=== PATIENT | male | born 1955 | race Caucasian/White ===

== ENCOUNTER 2018-09-27 10:21 | Inpatient (IN) ==
[2018-09-27] MEDS ORDERED: DOXY-100 100 MG in SODIUM CHLORIDE 100 ML IV STA (11:09)
[2018-09-27] MEDS ORDERED: UNASYN 3 GM in SODIUM CHLORIDE 100 ML IV STA (11:10)
[2018-09-27] MEDS: SODIUM CHLORIDE 1,000 ML IV STA ×2 (11:12→11:49)
[2018-09-27] MEDS ORDERED: UNASYN ONE (11:40)
--- NOTE | 2018-09-27 11:53 | CT ---
EXAM: CT of the abdomen pelvis without contrast History: Abdominal pain and fever. Comparison: Chest CT 09/27/2018 Technique: Multiplanar CT images through the abdomen pelvis were obtained without the administration of IV contrast Findings: Lung bases are clear. No acute osseous abnormalities. The liver is fatty. Gallbladder is contracted. Spleen is unremarkable. No peripancreatic inflammat ion. Adrenal glands are within normal limits. Nonspecific bilateral perinephric stranding. No manas l stones and no hydronephrosis. 4.2 cm right renal cyst. 1.7 cm cyst within the left kidney No uret eral calculi. No bowel obstruction. Small fat-containing umbilical hernia. There is mild subcutane ous edema and skin thickening of the lower anterior abdominal wall. No abscess. No bladder wall thi ckening. Prostate is not enlarged. No perirectal inflammation. No bowel obstruction. The appendix is normal. No free air and no ascites. Impression: 1. No acute intra-abdominal or pelvic process. 2. Hepatic steatosis. 3. Small fat-containing umbilical hernia. 4. Mild cellulitis of the lower anterior abdominal wall. No abscess. 5. Simple appearing bilateral renal cysts. 6. Nonspecific bilateral perinephric stranding.
--- NOTE | 2018-09-27 11:53 | CT ---
EXAM: CT of the chest without contrast History: Cough and fever. Comparison: CT abdomen pelvis 09/27/2014, chest radiograph 03/01/2015 Technique: Multiplanar CT images through the thorax were obtained without the administration of IV c ontrast Findings: Heart size is normal. Coronary calcifications. No thoracic aortic aneurysm. No axillary lymphadenopathy. There are several small but not pathologically enlarged mediastinal lymph nodes. Evaluation for hilar lymph nodes is limited due to the lack of contrast administration. No consolida tion. No pleural fluid and no pneumothorax. No suspicious lung masses or lung nodules. For details in the upper abdomen, please see dedicated CT abdomen pelvis done on the same day. No ac lilli osseous abnormalities. Impression: 1. No acute intrathoracic process. 2. Coronary artery disease
[2018-09-27] MEDS ORDERED: TYLENOL PO STA (11:54)
[2018-09-27] MEDS ORDERED: SODIUM CHLORIDE 1,000 ML IV STA (13:14)
--- NOTE | 2018-09-27 13:47 | ED.PDOC ---
General ED Provider: Dr. ALINA GRECO Chief Complaint: Fever Stated Complaint: FEVER RASH ABDOMEN TICK BITE Time Seen by Physician: 10:30 Mode of Arrival: Walk-In Information Source: Patient Exam Limitations: No limitations Primary Care Provider: VENANCIO WATTS Nursing and Triage Documentation Reviewed and Agree: Yes Does patient meet sepsis criteria?: No System Inflammatory Response Syndrome: Not Applicable Sepsis Protocol: For patient's 13 years and over: Temp is 96.8 and below OR 101 and greater Pulse >90 BPM Resp >20/minute Acutely Altered Mental Status Are patient's symptoms suggestive of a new infection, such as: -Pneumonia -Skin, Soft Tissue -Endocarditis -UTI -Bone, Joint Infection -Implantable Device -Acute Abdominal Infection -Wound Infection -Meningitis -Blood Stream Catheter Infection -Unknown Skin Complaint Exam - Skin Rash/Itching Complaint/Exam Symptoms Are: Still present Initial Severity: Mild Current Severity: Mild Potential Exposures: Reports: Unknown (POSSIBLE TICK) Aggravating: Reports: None Alleviating: Reports: None Associated Signs and Symptoms: Denies: Difficulty breathing, Fever, Chills Skin Findings: Present: Normal findings, Target lesions Review of Systems - Review Of Systems Constitutional: Reports: Fever, Malaise Eyes: Reports: No symptoms Ears, Nose, Mouth, Throat: Reports: No symptoms Respiratory: Reports: Cough Cardiac: Reports: No symptoms GI: Reports: Abdominal pain : Reports: No symptoms Musculoskeletal: Reports: No symptoms Skin: Reports: No symptoms Neurological: Reports: No symptoms Endocrine: Reports: No symptoms Hematologic/Lymphatic: Reports: No symptoms All Other Systems: Reviewed and Negative Past Medical History - Past Medical History Previously Healthy: Yes Endocrine: Reports: DM 2 Cardiovascular: Reports: Hypertension Respiratory: Reports: None Hematological: Reports: None Gastrointestinal: Reports: None Genitourinary: Reports: None Neuro/Psych: Reports: None Musculoskeletal: Reports: None Cancer: Reports: None - Surgical History General Surgical History: Reports: None - Family History Family History: Reports: None - Social History Smoking Status: Former smoker Hx Substance Use: No Alcohol Screening: None - Immunizations Tetanus Shot up to Date: No Physical Exam - Physical Exam Appearance: Well-appearing, No pain distress, Well-nourished Eyes: BINA, EOMI, Conjunctiva clear ENT: Ears normal, Nose normal, Oropharynx normal Respiratory: Airway patent, Breath sounds clear, Breath sounds equal, Respirations nonlabored Cardiovascular: RRR, Pulses normal, No rub, No murmur GI/: Soft, Nontender, No masses, Bowel sounds normal, No Organomegaly Musculoskeletal: Normal strength, ROM intact, No edema, No calf tenderness Skin: Warm, Dry, Normal color Neurological: Sensation intact, Motor intact, Reflexes intact, Cranial nerves intact, Alert, Oriented Psychiatric: Affect appropriate, Mood appropriate Interpretation - Radiology Interpretation Radiology Interpretation By: Radiologist Radiology Results: No acute changes - Road Grader Rhythm: Other (AFIB) - EKG Interpretation Rhythm: Other (AFIB) Re-Evaluation - Re-Evaluation Time of Re-Evaluation: 12:00 Status: Improved Appearance: NAD Lungs: Clear Skin: Warm and Dry Neuro: Alert and Oriented X3 CV: RRR - Re-Evaluation Time of Re-Evaluation: 13:47 Status: Improved Vital Signs Stable: Yes Appearance: NAD Skin: Warm and Dry Neuro: Alert and Oriented X3 CV: RRR Physician Notification - Case Discussed Physician Notified: CHRISTINE Time of Notification: 13:48 Admit To: Inpatient Critical Care Note - Critical Care Note Total Time (mins): 0 Course - Course Hematology/Chemistry: 09/27/18 10:55 09/27/18 10:55 Orders, Labs, Meds: Lab Review 09/27/18 09/27/18 09/27/18 10:55 10:55 11:20 WBC 8.11 RBC 4.10 L Hgb 11.9 L Hct 35.3 L MCV 86.1 MCH 29.0 MCHC 33.7 RDW Coeff of Samantha 12.5 Plt Count 201 Immature Gran % (Auto) 0.7 Neut % (Auto) 70.4 Lymph % (Auto) 18.4 [place] % (Auto) 10.0 Eos % (Auto) 0.0 Baso % (Auto) 0.5 Immature Gran # (Auto) 0.1 Neut # (Auto) 5.7 Lymph # (Auto) 1.5 [place] # (Auto) 0.8 Eos # (Auto) 0.0 Baso # (Auto) 0.0 Sodium 137.5 Potassium 3.80 Chloride 97.9 L Carbon Dioxide 26.1 Anion Gap 17.30 BUN 17.9 Creatinine 1.25 H Estimated GFR (MDRD) 59.00 BUN/Creatinine Ratio 14.32 Glucose 119.4 H Lactic Acid Calcium 8.62 Total Bilirubin 0.78 AST 49.6 ALT 55.5 H Alkaline Phosphatase 48.2 L Total Protein 7.56 Albumin 4.23 Globulin 3.33 Albumin/Globulin Ratio 1.27 Procalcitonin 0.36 09/27/18 11:20 WBC RBC Hgb Hct MCV MCH MCHC RDW Coeff of Samantha Plt Count Immature Gran % (Auto) Neut % (Auto) Lymph % (Auto) [place] % (Auto) Eos % (Auto) Baso % (Auto) Immature Gran # (Auto) Neut # (Auto) Lymph # (Auto) [place] # (Auto) Eos # (Auto) Baso # (Auto) Sodium Potassium Chloride Carbon Dioxide Anion Gap BUN Creatinine Estimated GFR (MDRD) BUN/Creatinine Ratio Glucose Lactic Acid 1.35 Calcium Total Bilirubin AST ALT Alkaline Phosphatase Total Protein Albumin Globulin Albumin/Globulin Ratio Procalcitonin Orders Category Date Time Status EKG-(ED ONLY) Stat CARDIO 09/27/18 11:06 Completed ED IV/MEDIPORT/POWERPORT .ONCE EMERGENCY 09/27/18 11:06 Active BLOOD CULTURE Stat LAB 09/27/18 12:00 Received CBC W/ AUTO DIFF Stat LAB 09/27/18 10:55 Completed COMPREHENSIVE METABOLIC PANEL Stat LAB 09/27/18 10:55 Completed EHRLICHIA DNA, PCR Stat LAB 09/27/18 11:20 Received LACTIC ACID Stat LAB 09/27/18 11:20 Completed LYME, WESTERN BLOT, SERUM Stat LAB 09/27/18 11:20 Received PROCALCITONIN Stat LAB 09/27/18 11:20 Completed VIANEY MTN SPOTTED FEVER,IgG Stat LAB 09/27/18 11:20 Received VIANEY MTN SPOTTED FEVER,IgM Stat LAB 09/27/18 11:20 Received 0.9 % Sodium Chloride [Saline Flush] MEDS 09/27/18 11:06 Active 1 syr IVF PRN PRN Acetaminophen [Tylenol] MEDS 09/27/18 11:54 Discontinued 650 mg PO ONCE STA Ampicillin Sodium/Sulbactam Na [Unasyn] MEDS 09/27/18 11:40 Discontinued 3 gm .ROUTE .STK-MED ONE Ampicillin Sodium/Sulbactam Na [Unasyn] 3 gm MEDS 09/27/18 11:10 Discontinued 0.9 % Sodium Chloride [Sodium Chloride] 100 ml IV ONCE Doxycycline Hyclate Inj [Doxy-100] 100 mg MEDS 09/27/18 11:09 Discontinued 0.9 % Sodium Chloride [Sodium Chloride] 100 ml IV ONCE SODIUM CHLORIDE 0.9% @ 1,000 MLS/HR(1,000ml) MEDS 09/27/18 13:14 Ordered Sodium Chloride 0.9% [Sodium Chloride] 1,000 ml IV BOLUS Sodium Chloride 0.9% [Sodium Chloride] 1,000 ml MEDS 09/27/18 11:[address] ABDOMEN/PELVIS WO CONTRAST Stat RADS 09/27/18 11:[address] CHEST W/O CONTRAST Stat RADS 09/27/18 11:08 Completed Medications Generic Name Dose Route Start Last Admin Trade Name Freq PRN Reason Stop Dose Admin Sodium Chloride 1,000 mls @ 1,000 mls/hr 09/27/18 13:14 Sodium Chloride IV 09/27/18 14:13 BOLUS STA Sodium Chloride 1 syr 09/27/18 11:06 09/27/18 13:15 Saline Flush IVF 1 syr PRN PRN Administration To flush IV Discontinued Medications Generic Name Dose Route Start Last Admin Trade Name Freq PRN Reason Stop Dose Admin Acetaminophen 650 mg 09/27/18 11:54 09/27/18 11:59 Tylenol PO 09/27/18 11:55 650 mg ONCE STA Administration Sodium Chloride 1,000 mls @ 1,000 mls/hr 09/27/18 11:07 09/27/18 11:49 Sodium Chloride IV 09/27/18 12:06 1,000 mls/hr BOLUS STA Administration Doxycycline Hyclate 100 mg/ 100 mls @ 50 mls/hr 09/27/18 11:09 09/27/18 13:13 Sodium Chloride IV 09/27/18 13:08 50 mls/hr ONCE STA Administration Ampicillin Sodium/Sulbactam 100 mls @ 100 mls/hr 09/27/18 11:10 09/27/18 11: 49 Sodium 3 gm/ Sodium Chloride IV 09/27/18 12:09 100 mls/hr ONCE STA Administration Vital Signs: Temp Pulse Resp BP Pulse Ox 09/27/18 12:05 102.3 F H 09/27/18 10:26 102.0 F H 102 H 16 151/76 H 91 L Departure - Departure Time of Disposition: 13:47 Disposition: ADMITTED INPATIENT Discharge Problem: Fever Tick bite Qualifiers: Encounter type: initial encounter Qualified Code(s): W57.XXXA - Bitten or stung by nonvenomous insect and other nonvenomous arthropods, initial encounter Condition: Good Pt referred to PMD for follow-up: Yes IPMP verified?: No Additional Instructions: Please call your Family Physician as soon as possible to schedule a follow-up appointment. Allergies/Adverse Reactions: Allergies No Known Allergies Allergy (Unverified 09/27/18 10:45) Home Medications: Ambulatory Orders Amitriptyline HCl [Elavil] 12.5 mg PO BEDTIME 09/27/18 Atenolol 100 mg PO DAILY 09/27/18 Clobetasol Propionate/Emoll [Clobetasol Emollient 0.05% Crm] 1 mg TP PRN PRN Glipizide 10 mg PO BID 09/27/18 Hydrochlorothiazide 25 mg PO DAILY 09/27/18 Insulin Aspart [Novolog Flexpen] 20 units SQ TIDAC 09/27/18 Liraglutide [Victoza 3-Ben] 0.6 mg SQ DAILY 09/27/18 Lisinopril [Zestril] 40 mg PO DAILY 09/27/18 Meclizine HCl 25 mg PO PRN PRN 09/27/18 Metformin HCl 1,000 mg PO DAILY 09/27/18 Mupirocin [Bactroban] 1 applic TP BID 09/27/18 Omeprazole [Prilosec] 20 mg PO BID 09/27/18 Pregabalin [Lyrica] 150 mg PO DAILY 09/27/18 Ranitidine HCl 150 mg PO BEDTIME 09/27/18 Simvastatin 40 mg PO BEDTIME 09/27/18 Sulfamethoxazole/Trimethoprim [Bactrim Ds 800/160 mg] 1 tab PO BID 09/27/18
[2018-09-27] MEDS ORDERED: ANTIVERT PO PRN (13:52)
--- NOTE | 2018-09-27 14:07 | PCM ---
- Chief Complaint Chief Complaint: Tick Bite. Fever - History of Present Illness History of Present Illness: 62 yo CM patient of Dr. Collins presented to ED 10:30 this am and met with DR. Finnegan. Known history of HTN, IDDM DM2, hyperlipidemia, Obesity bmi 35. The patient presented today with fever, abdominal rash and known tick bite. Vitals Temp 102 degrees, pulse 102, rr 16, bp 151/76, pulse ox 91 %. Repeated at 12: 05 and 102.3 degrees. Concern for tick bite/fever, covered with doxycycline in the Er as well as unasyn. 1 L bolus, tylenol given as well. CT chest ordered, CT abd pelvis ordered. RMSF ordered, Procalc ordered, lyme ordered, Lactic acid ordered, ehrlichia ordered, CBC/CMP, blood culture and EKG ordered. Lactic acid negative at 1.35. Procalcitonin negative 0.36. CMP glucose mildly elevated at 119.4, mild suspected KI with creatinine 1.25 and GFR 59. Remainder WNL. CBC showed wbc 8.11, hgb 11.9, mild anemia. Plt normal at 201. I was called at 13:[address] and had discussion [address] Dr[address] Finnegan 1:1 and agreed to observation admit. Evaluated by ED provider at 1200 and 1347. He was listed as afib by rhythm ekg and lunchroom monitor. Exam in ER well appearing no distress, no other pertinent + or -. Tetanus shot is not up to date. He denied any SOA, PND, orthopnea, chest pain, GARCIA. Patient did meet SIRS criteria w/ temp >100.4 and HR >90. Chest CT showed no acute intrathoracic process, CAD. Abd pelvis CT w/o contrast: NO acute process. Fatty liver, small fat containing umbilical hernia. Mild cellulitis of lower abdominal wall, no abscess. Simple appearing bilateral renal cysts. Non specific bilateral perinephric stranding. REviewed nursing note and patient went to on sunday and was placed on topical cream and given sulfa abx. Went to pcp office yesterday, saw PA . Wanted to watch and add another abx to this. noted that they waited but never called anything in. Went to [facility] ER gave fluids and IV vanco. He felt worse, complained of systemic fever. 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 I like the option for clinda and doxy. Patient in room with step daughter today. Seen in room 110 at 1600. he has had sore on his abdomen for about 1 week. he notes it is increasing in size and nothing has worked so far to decrease this. He has been on numerous abx this week, nothing is working. he notes he has been to [facility] ER, [facility], PCP office. He has had chills and fever since sunday. He has been using tylenol. temp was 102 in the Er and now down to 100.9. he has no pain anywhere, just tired, fatigued. He reports no GARCIA, feels dizzy and disoriented and fatigued. Poor sleep. Did not get [facility] from [facility] until after 1 am. Patient noted that physician that saw him at [facility] did not want abx. they gave vanco. he is tired/frustrated and wants to get it improving. Diagnosed him w/ cellulitis and d/c from ER with temp of 101. WE obtained 09/24/18 records from [facility] Genevieve colbert. Blistering abscess moderate sudden onset x 5 days. Worsening with time. Insect bite/sting suggested. Fever, GARCIA and nausea, chills and dizziness w/o Diarrhea or emesis. ROS showed chills/fever, nausea, dizziness and GARCIA. BP was 157/86 in . Bactroban ordered (Would still use this). Bactrim ordered by . 09/26/18 presented to ED and met with Sincere Linder DO for his ad cellultis. They noted ?spider bite. Sunday09/21/18 noted worsening area of skin irritation. 09/24 went to . Was given bactrim and told to return to ER if worsening as MRSA is possible. Redness and sx worsening, saw his PCP mid level am of 09/26/18. He was given Rx for clinda but never got it. No new sx in their Er. Chills/ fatigue. No chest pain, racing heart, dizziness. No SOA, no ND, no orthopnea. Fatigue ++. No genitourinary complaints. WBC 7.51, lactate 1.2. IV vanco ordered. CT abd/pelvis not done there as not clinically indicated, localized drainage no I+D. No IV abs needed, does have rx for clinda. Admission not warranted at their ER. He presented here with essentially same history but now fever for ~1 week. Rash now c/w RMSF. He has not picked up the clinda. I will put him on that and doxy. PCN (ER) and doxy not great choice due to interactions. - Review of Systems Constitutional: fever, chills, weakness, sweats, fatigue, loss of appetite. No : other Eyes: No: blurred vision, double-vision, discharge, itching, pain, redness, photophobia, other Ears: No: pain, bleeding, drainage, ringing, hearing loss, other Nose: No: bleeding, congestion, discharge, other Throat: No: pain, swelling, voice change, other Mouth: No: bleeding, pain, swelling, other Respiratory: No: cough, shortness of air, wheeze, hemoptysis, pain with breathing, other Cardiovascular: No: chest pain, left arm pain, diaphoresis, PND, orthopnea, edema, palpitations, syncope, other Gastrointestinal: No: abdominal pain, other, nausea, vomiting, diarrhea, melena , hematemesis, hematochezia, dysphagia, constipation Genitourinary: No: dysuria, hematuria, frequency, incontinence, flank pain, penile discharge, testicular pain, testicular swelling, other Neurological: headache (mild), dizziness (mild). No: other, seizure, numbness, weakness, speech difficulty, problems with walking, tremor, fainting Musculoskeletal: No: pain, swelling in joints, other Skin: No: rash, pruritus, lacerations, wounds, bruising, other Immunology: itching, other. No: hives, frequent infections, difficulty healing Hematology: No: easy bruising, easy bleeding, swollen glands, other Endocrine: No: weight changes, cold intolerance, heat intolerance, excessive thirst, excessive hunger, polyuria, other Psychiatric: anxiety, sleeplessness. No: depression, hopelessness, suicidal, hallucinations, other Habits: alcohol use (intermittent beer). No: tobacco use, substance use, other - Past Medical History Past Medical History: IDDM (NOVOLOG AND VICTOZA, METFORMIN, GLIPIZIDE), Hyperlipidemia, HTN, BMI 35, neuropathy peripherally. GERD. - Past Surgical History Past Surgical History: none. - Allergies Allergies/Adverse Reactions: Allergies Allergy/AdvReac Type Severity Reaction Status Date / Time No Known Allergies Allergy Verified 09/27/18 15:54 - Medications Medications: Medications Generic Name Dose Route Start Last Admin Trade Name Freq PRN Reason Stop Dose Admin Amitriptyline HCl 12.5 mg 09/27/18 21:00 Elavil PO BEDTIME RAMOS Hydrochlorothiazide 25 mg 09/28/18 09:00 Hydrochlorothiazide PO DAILY RAMOS Sodium Chloride 1,000 mls @ 1,000 mls/hr 09/27/18 13:14 Sodium Chloride IV 09/27/18 14:13 BOLUS STA Doxycycline Hyclate 100 mg/ 100 mls @ 50 mls/hr 09/27/18 21:00 Sodium Chloride IV 09/30/18 20:59 Q12HR RAMOS Sodium Chloride 1,000 mls @ 75 mls/hr 09/27/18 14:00 Sodium Chloride IV .[id number] RAMOS Ampicillin Sodium/Sulbactam 100 mls @ 100 mls/hr 09/27/18 21:00 Sodium 3 gm/ Sodium Chloride IV 09/30/18 20:59 Q12HR [facility] Lisinopril 40 mg 09/28/18 09:00 Zestril PO DAILY [facility] Meclizine HCl 25 mg 09/27/18 13:52 Antivert PO PRN PRN Dizziness Non-Formulary Medication 100 mg 09/28/18 09:00 Atenolol [Atenolol] PO DAILY [facility] Non-Formulary Medication 10 mg 09/27/18 21:00 Glipizide [Glipizide] PO BID RAMOS Non-Formulary Medication 20 units 09/27/18 17:00 Insulin Aspart [Novolog Flexpen] SQ TIDAC [facility] Non-Formulary Medication 0.6 mg 09/28/18 09:00 Liraglutide [Victoza 3-Ben] SQ DAILY [facility] Non-Formulary Medication 1,000 mg 09/28/18 09:00 Metformin Hcl [Metformin Hcl] PO DAILY RAMOS Non-Formulary Medication 150 mg 09/28/18 09:00 Pregabalin [Lyrica] PO DAILY RAMOS Non-Formulary Medication 150 mg 09/27/18 21:00 Ranitidine Hcl [Ranitidine Hcl] PO BEDTIME RAMOS Omeprazole 20 mg 09/27/18 21:00 Prilosec PO BID RAMOS Simvastatin 40 mg 09/27/18 21:00 Zocor PO BEDTIME RAMOS Sodium Chloride 1 syr 09/27/18 11:06 09/27/18 13:15 Saline Flush IVF 1 syr PRN PRN Administration To flush IV - Family History Past Family History: Mother-Dec: Alzheimer, HTN. Father-Dec: emphysema. Brother-Dec: ETOH abuse. Sister-Sarah: healthy. Son-Sarah: healthy. Daughter-Sarah : HTN - Social History Past Social History: at home. No drugs, no tobacco, intermittent rare ETOH. 3 dogs at home and a cat. Works for [employer]. - Body Composition Height: 6 ft Weight: 258 lb 3.2 oz Body Mass Index (BMI): 35.0 - Physical Examination HEENT: Constitutional: Appearance-No acute distress, Consistent with stated age. Orientation- Oriented x 3, alert Gait-Normal pace, normal arm movement. Build and Nutrition-[obese male BMI 35. General- Patient is pleasant and cooperative with the interview and exam. Integumentary: General-rash is present UE, LE, Abdomen, torso, ulcers or lesions. Palpation- Normal skin moisture/turgor. Skin is warm to touch, appropriate. Capillary refill is normal bilateral Upper and lower extremity. 5mm x 5mm central skin breakdown/scab. 7 cm x 3 cm erythema with skin pen marking and second rim 13cm x 7 cm. Blanching erythema. No discomfort. Not fluctuant. This has ?EM appearance to it. He has scattered papular rash along abdomen and wrist forearm on right/left, chest and bilateral lE. i discussed did not look like Solomon, but did look like RMSF. Head/Neck: Head- normocephalic and atraumatic. Neck- without visible/palpable lumps or pulsations. Palpation- No bony tenderness about head/neck along frontal, occipital, temporal, parietal, mastoid, jawline, zygoma, orbit or any other location. NO temporal artery tenderness. No TMJ tenderness. Neck Supple. Thyroid-No thyromegaly, no nodules Eye: Bilaterally PERRLA, EOMI. No discharge. Upper and lower eyelids are normal. Sclera/conjunctiva normal without discharge. Cornea is normal and clear. Lens is normal. Eyeball appears normal. No ciliary flushing, no conjunctival injection. ENMT: Pinna- normal without tenderness or erythema. External auditory canal Left- normal without erythema or discharge, no excessive cerumen. External auditory canal Right-normal without erythema or discharge, no excessive cerumen. TM left- Mata/pearly, normal light reflex and anatomy TM Right- Mata/ pearly, normal light reflex and anatomy Hearing Assessment-normal to conversational speech. Nose and sinus- No sinus tenderness along frontal/ maxillary region. External appearance normal and midline. Nares- bilateral quiet airflow, no discharge. Nasal mucosa- No bleeding noted and no ulcerations observed. Bernard, moist. Turbinates non boggy. Lips- normal color, moist without cracks/lesions Oral Cavity/Palate- hard/soft palate intact without lesions, oral mucosa pink and moist. Dentition assessed [] and discussed appropriate oral care. Tongue normal midline. Oropharynx- no pharyngeal erythema, Uvula midline. No post nasal drip. No exudate. Salivary glands- Non tender to palpation CHEST/LUNG: Inspection- symmetric chest wall no pectus deformity. Normal effort , no distress, no use of accessory muscles. Palpation- nontender sternum, ribline. No abnormal pulsations. Auscultation- Breath sounds normal throughout all lung rosado. Normal tracheal sounds, Normal bronchial sounds overlying sternum, Bronchovessicular sounds normal between scapulae posteriorly, Normal vessicular breath sounds heard throughout periphery. Lungs are clear today. Adventitious sounds- No wheezes, rales, rhonchi. CARDIOVASCULAR: Carotid artery- normal, no bruits or abnormal pulsations. Jugular vein- no pulsations. Palpation/Percussion- Normal PMI, no palpable thrill NO tachycardia at time of my examination. Auscultation- Regular rate and rhythm. No murmur noted in sitting, supine positions. Extremities- no digital clubbing, cyanosis, edema, increased warmth. ABDOMEN: Inspection- normal and no visible pulsations. Normal contour. Auscultation- Bowel sounds normal, no abdominal bruits. Palpation/Percussion- soft, non-tender, no rebound tenderness, no rigidity (guarding), no jar tenderness, no masses. Liver-no hepatomegaly, Spleen no splenomegaly, Hernias - none. Rectal not examined. Peripheral Vascular: Upper extremity Left- Normal temperature with pink nailbeds and no ulcerations. Upper extremity Right- Normal temperature with pink nailbeds and no ulcerations. Lower extremity- Normal temperature with pink nailbeds and no ulcerations. DP pulses 2+ bilaterally. Pedal hair intact. Normal capillary refill. Edema- No edema. Musculoskeletal: Generalized-No generalized swelling or edema of extremities, no digital clubbing or cyanosis, neurovascularly intact all four extremities. Upper extremity- Symmetrical posture. No visible deformity. Normal sensation along medial and lateral upper extremity proximally and distally. NO tenderness overlying shoulder, lateral/medial epicondyle. 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 Elbow palpated, no tenderness overlying olecranon. Normal supination, pronation to active/passive ROM and to resisted rotation. Bicep insertion/tricep insertion appear normal without obvious pathology. Rotator cuff evaluated and intact. Normal wrist ROM bilaterally. Normal hand movement, intrinsic muscles of hands normal. No tenderness to palpation of hands/wrists/ elbows. Lower extremity- Hip: Not tender to palpation, no pain, no swelling, edema or erythema of surrounding tissue, normal strength and tone. Normal appearing hip ROM bilaterally without pain. Knee: Knee ROM normal. No tenderness overlying trochanters, no tenderness about patella, quad tendon, patellar tendon. No tenderness at tibial tuberosity. Ankle: normal ROM not tender to palpation along medial/lateral malleolus. Foot: Normal movement of toes, no tenderness bilateral feet/toes. Normal foot type. Spine/Ribs- No deformities, masses or tenderness, no known fractures, normal strength, Normal ROM. Normal stability No tenderness along C/T/L spine. Normal appearing ROM about spine. Neurological: General- Moves all 4 extremities symmetrically. Symmetrical face and body posture. Cranial nerves- individually evaluated II-XII and intact. PERRLA, Normal EOMI, visual/special senses appear intact, Face is symmetrical and normal sensation/movement, normal tongue, normal strength/posture of neck musculature. Reflexes- intact with DTR 2+ patellar, Achilles, bicep, brachial, tricep. Ankle clonus normal with 2 beats. Strength- 5/5 bilateral UE and LE. Soft touch- intact bilateral UE and LE. Temperature sensation- intact bilateral UE and LE. Neuropsych: Oriented- Person, place, time. (AAOx3), Mood/affect- normal and congruent. Able to articulate well. Speech-Normal speech, normal rate, normal tone, normal use of language, volume and coherence. Thought content- normal with ability to perform basic computations and apply abstract thought/reason. Associations- intact, no SI/HI, no hallucinations, delusions, obsessions. Judgment/insight- Appropriate. Memory-Recall intact, remote and recent memory intact. Knowledge- Age appropriate fund of knowledge, concentration and attention span normal. Lymphatic: Head/Neck- normal size and non tender to palpation. Axillary- normal size and non tender to palpation. Femoral and Inguinal- normal size and non tender to palpation. - Lab/Tests/Diagnostic Imaging Lab/Tests/Diagnostic Imaging: Laboratory Results - last 24 hr 09/27/18 09/27/18 09/27/18 10:55 10:55 11:20 WBC 8.11 RBC 4.10 L Hgb 11.9 L Hct 35.3 L MCV 86.1 MCH 29.0 MCHC 33.7 RDW Coeff of Samantha 12.5 Plt Count 201 Immature Gran % (Auto) 0.7 Neut % (Auto) 70.4 Lymph % (Auto) 18.4 [place] % (Auto) 10.0 Eos % (Auto) 0.0 Baso % (Auto) 0.5 Immature Gran # (Auto) 0.1 Neut # (Auto) 5.7 Lymph # (Auto) 1.5 [place] # (Auto) 0.8 Eos # (Auto) 0.0 Baso # (Auto) 0.0 Sodium 137.5 Potassium 3.80 Chloride 97.9 L Carbon Dioxide 26.1 Anion Gap 17.30 BUN 17.9 Creatinine 1.25 H Estimated GFR (MDRD) 59.00 BUN/Creatinine Ratio 14.32 Glucose 119.4 H Lactic Acid Calcium 8.62 Total Bilirubin 0.78 AST 49.6 ALT 55.5 H Alkaline Phosphatase 48.2 L Total Protein 7.56 Albumin 4.23 Globulin 3.33 Albumin/Globulin Ratio 1.27 Procalcitonin 0.36 09/27/18 11:20 WBC RBC Hgb Hct MCV MCH MCHC RDW Coeff of Samantha Plt Count Immature Gran % (Auto) Neut % (Auto) Lymph % (Auto) [place] % (Auto) Eos % (Auto) Baso % (Auto) Immature Gran # (Auto) Neut # (Auto) Lymph # (Auto) [place] # (Auto) Eos # (Auto) Baso # (Auto) Sodium Potassium Chloride Carbon Dioxide Anion Gap BUN Creatinine Estimated GFR (MDRD) BUN/Creatinine Ratio Glucose Lactic Acid 1.35 Calcium Total Bilirubin AST ALT Alkaline Phosphatase Total Protein Albumin Globulin Albumin/Globulin Ratio Procalcitonin CT chest No acute intrathoracic process CAD. Abd pelvis CT w/o contrast: NO acute process. Fatty liver, small fat containing umbilical hernia. Mild cellulitis of lower abdominal wall, no abscess. Simple appearing bilateral renal cysts. Non specific bilateral perinephric stranding. - Assessment (1) Cellulitis Status: Acute Code(s): L03.90 - CELLULITIS, UNSPECIFIED SNOMED Code(s): 355260044 (2) SIRS (systemic inflammatory response syndrome) Status: Acute Code(s): R65.10 - SIRS OF NON-INFECTIOUS ORIGIN W/O ACUTE ORGAN DYSFUNCTION SNOMED Code(s): 953240795 (3) Fever Status: Acute Code(s): R50.9 - FEVER, UNSPECIFIED SNOMED Code(s): 952085351 (4) Tick bite Status: Acute Code(s): T14.8 - OTHER INJURY OF UNSPECIFIED BODY REGION * DO NOT USE * SNOMED Code(s): 85326759, 557954081 Qualifiers: Encounter type: initial encounter Qualified Code(s): W57.XXXA - Bitten or stung by nonvenomous insect and other nonvenomous arthropods, initial encounter (5) Insulin dependent diabetes mellitus Status: Acute Code(s): E11.9 - TYPE 2 DIABETES MELLITUS WITHOUT COMPLICATIONS ; 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 This could have been at site of insulin injection with fat necrosis from insulin shot. Could be tick bite, could be insect bite, could be cellulitis. NOw with papular rash along abdomen, Bilateral LE/UE with fever. No major GARCIA, no joint pain. Rash consistent with RMSF. However he has been on vanco, has been on bactrim. He has had lyme panel, RMSF abs, ehrlichia PCR ordered. He was started on doxy and unasyn in ER. I stopped unasyn due to interaction with doxy. I will add clinda to cover for ?MRSA and local infection. He had vanco x 1, I may add that in next few days. There are 3 main infection concerns regarding tick bites. RMSF, Lyme and Ehrlichiosis. In our region, Lyme is much less likely. Reviewed travel (none), reviewed history of insect bite, reviewed likelihood of arthropod related infection. Symptoms changed to include GARCIA (mild), fever, w/o joint pain, w/o major body aches, + fatigue and now rash. Discussed that there can be a 1-2 day incubation period. These symptoms are present now. Reviewed [place] Tick: Ehrlichia (5-15% of ticks), [place] Tick: Lyme disease Dog Tick: Young mountain spotted fever. Discussed alpha gal briefly. R/B/A to Doxy d/w patient. I will add clindamycin as well. R/B/a to this d/w patient. Reviewed risks of cdiff. Tick labs have been ordered. Discussed risks/benefits of acetaminophen and NSAIDS such as Ibuprofen/Aleve/Diclofenac/Mobic for pain. Monitor for reduction of fever. MOnitor for diarrhea. - Admit obs - Telemetry - CBC/CMP in am. - A1C now - Doxy 100 BID * 7 days - Clinda 300 QID * 7 days - Bactroban topically - Tylenol 500 TID. Insulin Dependent DM 2: A1C goal <7%. He is not currently at goal. I will resume home meds, even with Sulfonylurea and metformin for now. Continue victoza, continue humalog 20 units TID, continue. I ordered his a1c and it was 8.08. Discussed sugars. Discussed goal 1 <8% and ultimate goal <7%. - A1C now. - Continue home DM meds. (Glipizide 10 BID, Vicoza 0.6 daily, metformin 1000 daily). Essential HTN: History of HTN. Elevated BP today above goal. JNC 8 guidelines supporting <140/90 for most adults and <150/90 for healthy older adults. Discussed some readily available medications/supplements can increase BP: NSAIDS , caffeine, decongestants, nicotine. Additionally stress, illegal drugs/ substances, Pain and anxiety/white coat syndrome, infection can increase BP. Close monitoring encouraged. I will monitor overnight, see if fever is improving. No chest pain, vision changes, unexplained GARCIA consider. - Continue home meds (lisinopril 40 daily, hctz 25 daily, atenolol 100 daily Normocytic anemia: ER note form 09/26 he was at 12.4, now 11.9. RDW is normal, MCV is normal. Monitor CBC - CBC in am tomorrow. Afib noted on ER MOnitor: Noted Afib but he has been SR BBB while in hospital and he had normal sinus on exam. Will re-eval in the am. DVT prophy lovenox. - Tele/monitor Code Status: Full code. Diet: ADA 1800 kcal. Activity: Ad edmund DVT prophy: Lovenox 40 mg subcut. Disposition: I obtained records from reviewed these, talked with provider directly from ER DR. Finnegan, reviewed tele, labs, imaging. Expected length of stay 48-72 hours. New rash on abdomen coupled with1 week of symptoms consistent with RMSF. These have been ordered. >70 minutes spent on admission today to the
[2018-09-27 16:13] VITALS: BMI 35.0
[2018-09-27] MEDS ORDERED: INSULIN ASPART 20 UNIT SQ SCH (17:00)
[2018-09-27] MEDS: TYLENOL PO PRN (17:31)
[2018-09-27] MEDS: HUMALOG SUBCUT SCH (17:53)
[2018-09-27] MEDS: CLEOCIN PO SCH (18:00)
[2018-09-27] MEDS: GLUCOTROL PO SCH (18:11)
[2018-09-27] MEDS: LOVENOX SUBCUT SCH (19:26)
[2018-09-27] MEDS: ZANTAC PO SCH (20:44)
[2018-09-27] MEDS: SODIUM CHLORIDE 1,000 ML IV SCH (20:44)
[2018-09-27] MEDS: DOXY-100 100 MG in SODIUM CHLORIDE 100 ML IV SCH (20:45)
[2018-09-27] MEDS: ZOCOR PO SCH (20:45)
[2018-09-27] MEDS: BACTROBAN TP SCH (20:45)
[2018-09-27] MEDS: PRILOSEC PO SCH (20:45)
[2018-09-27] MEDS ORDERED: NON-FORMULARY MEDICATION (Ranitidine Hcl [Ranitidine Hcl] 150 MG) PO SCH (21:00)
[2018-09-27] MEDS ORDERED: UNASYN 3 GM in SODIUM CHLORIDE 100 ML IV SCH (21:00)
[2018-09-27] MEDS ORDERED: NON-FORMULARY MEDICATION (Glipizide [Glipizide] 10 MG) PO SCH (21:00)
[2018-09-27] MEDS ORDERED: DESYREL PO ONE (21:01)
[2018-09-27] MEDS: ELAVIL PO SCH (21:03)
[2018-09-28] MEDS: CLEOCIN PO SCH ×5 (00:44→23:54)
[2018-09-28] MEDS: GLUCOTROL PO SCH ×2 (05:59→17:12)
[2018-09-28] MEDS: HUMALOG SUBCUT SCH ×3 (06:00→17:12)
[2018-09-28] MEDS ORDERED: GLUCOPHAGE PO SCH (08:00)
[2018-09-28] MEDS ORDERED: NON-FORMULARY MEDICATION (Pregabalin [Lyrica] 150 MG) PO SCH (09:00)
[2018-09-28] MEDS ORDERED: NON-FORMULARY MEDICATION (Atenolol [Atenolol] 100 MG) PO SCH (09:00)
[2018-09-28] MEDS ORDERED: NON-FORMULARY MEDICATION (Metformin Hcl [Metformin Hcl] 1,000 MG) PO SCH (09:00)
[2018-09-28] MEDS: TENORMIN PO SCH (09:19)
[2018-09-28] MEDS: LYRICA PO SCH (09:19)
[2018-09-28] MEDS: HYDROCHLOROTHIAZIDE PO SCH (09:20)
[2018-09-28] MEDS: ZESTRIL PO SCH (09:20)
[2018-09-28] MEDS: PRILOSEC PO SCH ×2 (09:21→21:36)
[2018-09-28] MEDS: TYLENOL PO PRN ×2 (09:21→14:51)
[2018-09-28] MEDS: LOVENOX SUBCUT SCH (09:22)
[2018-09-28] MEDS: BACTROBAN TP SCH ×3 (09:31→21:40)
[2018-09-28] MEDS ORDERED: RESTORIL PO STA (09:51)
[2018-09-28] MEDS: NON-FORMULARY MEDICATION (Liraglutide [Victoza 3-Pak] 0.6 MG) SQ SCH (10:03)
--- NOTE | 2018-09-28 10:15 | PCM.PROG ---
Subjective: 62 yo WM HD #2 abx day #2 clinda 300 PO QID and doxy 100 IV BID. He has had temp afebrile since 1800 09/27/18. 99.5, 98.5, 99.4, 98.9. Tylenol on board, PRN zofran on board. Overnight left hand IV infiltrated and patient did not notice. Nursing noted this removed IV, held fluids. Ice pack applied, hand elevated. Appropriate care initiated. The patient did not sleep well, trazodone did not seem to work. NO changes to abdominal wound overnight. HYR has been 90-96 since admit. BP have been 127-135/69-81 since admit. O2 93-98%. Tele has been SR, SR w/ BBB, and NSR w/ BBB. Looked at 24 hour pattern on computer. Consumed 50% of HS snack, 50% of lunch. GLucose stable at 134/91 last accucheck. Home meds resumed. Am labs showed WBC stable at 8.14, Hgb has dropped ~1 gram to 10.1 from 11.9. He had BM this am (undocumented), reported no blood. No blood in stool historically. He had normal plt at 159. CMP this am showed Creatinine from 1.25 now down t0 1.27. A1C was 8.08. ALT 53.7 and AST 49.4. Uout has been 0.95ml/kg/hr over last 8 hours and good. I checked on him this am and his was present in the room. We discussed his care, discussed infection. Abdomen erythema single ring now. 7cm x5cm. Within inner skin pen marking. He did not sleep well on trazodone. Will change this to temazepam. Continue with PRN zofran, Tylenol 500 TID. With infiltrate in his IV, will change doxy to oral and will watch another 24 hours. Rash on body salmon color fading. Swelling prominently to left hand/wrist after infiltration. I have this elevated I did apply light compression to the area with gauzing. REVIEW OF SYMPTOMS: (Positives bolded) General: weight loss, fever, chills, night sweats, fatigue, appetite loss HEENT: blurry vision, eye pain, eye discharge, dry eyes, decreased vision, sore throat tinnitus, bloody nose, hearin gloss, sinus pain/pressure, ear pain/ pressure. Respiratory: shortness of breath, cough, hemoptysis, wheezing, pleurisy, Cardiovascular: chest pain, PND, palpitation, edema, orthopnea, syncope, swelling of extremities Gastro: Nausea, vomiting, diarrhea, hematemesis, abdominal pain, constipation Genito: hematuria, dysuria, glycosuria, hesitancy, frequency, incontinence [place]: Arthralgia, myalgia, muscle weakness, joint swelling, NSAID use Skin: rash, pruritis, sores, nail changes, skin thickening, change in wart/mole , itching, rash, new lesions, pruritus, nail changes Neuro: Migraine, numbness, ataxia, tremor, vertigo, weakness, memory loss, Irritability, dizziness Endocrine: excessive thirst, polyuria, cold intolerance, heat intolerance, goiter Psychiatric: depression, anxiety, anti-depressants, alcohol abuse, drug abuse, insomnia, change in sleep pattern and mood changes Heme/lymph: easy bruising, bleeding gums, blood clots, swollen glands, lymphedema, Allergic/immune: allergic rhinitis, hay fever, asthma, hives Objective: Vital Signs - 24 hr 09/27/18 09/27/18 09/27/18 10:26 12:05 14:23 Temperature 102.0 F H 102.3 F H 100.9 F H Pulse Rate 102 H 90 Respiratory 16 22 Rate Blood Pressure 151/76 H O2 Sat by Pulse 91 L 93 L Oximetry 09/27/18 09/27/18 09/27/18 16:42 18:00 20:00 Temperature 102.9 F H 99.5 F Pulse Rate 96 H 96 H Respiratory 22 20 18 Rate Blood Pressure 130/69 136/82 O2 Sat by Pulse 98 98 Oximetry 09/27/18 09/28/18 09/28/18 21:40 02:00 05:36 Temperature 98.8 F 99.4 F 98.9 F Pulse Rate 92 H 90 Respiratory 18 18 Rate Blood Pressure 127/74 135/81 O2 Sat by Pulse 96 98 Oximetry 09/28/18 07:00 Temperature Pulse Rate Respiratory Rate Blood Pressure 135/81 O2 Sat by Pulse Oximetry Constitutional: Appearance-No acute distress, Consistent with stated age. Sitting in bedside chair, in room. Orientation- Oriented x 3, alert Build and Nutrition-[obese male BMI 35. General- Patient is pleasant and cooperative with the interview and exam. Appears tired. Integumentary: General-rash is present UE, LE, Abdomen, torso fading, light pink /salmon colored. Palpation- Tight tissue about the left hand. Cool from use of ice pack. Capillary refill is normal bilateral Upper and lower extremity. 5mm x 5mm central skin breakdown/scab. unchanged. 7 cm x 3 cm erythema with skin pen marking. Second rim documented as 13cm x 7 cm yesterday has resolved. Blanching erythema. No discomfort. Not fluctuant. This has ?EM appearance to it. It appears to be less red, less irritated today. He has scattered papular rash along abdomen and wrist forearm on right/left, chest and bilateral lE as noted fading. i discussed did not look like Red[place], but did look like RMSF. Head/Neck: Head- normocephalic and atraumatic. Neck- without visible/palpable lumps or pulsations. Palpation- No bony tenderness about head/neck along frontal, occipital, temporal, parietal, mastoid, jawline, zygoma, orbit or any other location. NO temporal artery tenderness. No TMJ tenderness. Neck Supple. Thyroid-No thyromegaly, no nodules Eye: Bilaterally PERRLA, EOMI. No discharge. Upper and lower eyelids are normal. Sclera/conjunctiva normal without discharge. Cornea is normal and clear. Lens is normal. Eyeball appears normal. No ciliary flushing, no conjunctival injection. ENMT: Nares- bilateral quiet airflow, no discharge. Nasal mucosa- No bleeding noted and no ulcerations observed. [place], moist. Turbinates non boggy. Lips- normal color, moist without cracks/lesions Oral Cavity/Palate- hard/soft palate intact without lesions, oral mucosa pink and moist. Dentition assessed [] and discussed appropriate oral care. Tongue normal midline. Oropharynx- no pharyngeal erythema, Uvula midline. No post nasal drip. No exudate. Salivary glands- Non tender to palpation CHEST/LUNG: Inspection- symmetric chest wall no pectus deformity. Normal effort , no distress, no use of accessory muscles. Palpation- nontender sternum, ribline. No abnormal pulsations. Auscultation- Breath sounds normal throughout all lung rosado. Normal tracheal sounds, Normal bronchial sounds overlying sternum, Bronchovessicular sounds normal between scapulae posteriorly, Normal vessicular breath sounds heard throughout periphery. Lungs are clear today. Adventitious sounds- No wheezes, rales, rhonchi. CARDIOVASCULAR: Auscultation- Regular rate and rhythm. No murmur noted in sitting, supine positions. Extremities- no digital clubbing, cyanosis, edema, increased warmth. ABDOMEN: Inspection- normal and no visible pulsations. Normal contour. Auscultation- Bowel sounds normal, no abdominal bruits. Palpation/Percussion- soft, non-tender, no rebound tenderness, no rigidity (guarding), no jar tenderness, no masses. Liver-no hepatomegaly, Spleen no splenomegaly, Hernias - none. Rectal not examined. Lesion lower abdomen as listed. Peripheral Vascular: Lower extremity- Normal temperature with pink nailbeds and no ulcerations. DP pulses 2+ bilaterally. Pedal hair reduced. Subungual hematoma toenail, subacute. Musculoskeletal: Generalized-No generalized swelling or edema of extremities, no digital clubbing or cyanosis, neurovascularly intact all four extremities. Neurological: General- Moves all 4 extremities symmetrically. Symmetrical face and body posture. Cranial nerves- individually evaluated II-XII and intact. PERRLA, Normal EOMI, visual/special senses appear intact, Face is symmetrical and normal sensation/movement, normal tongue, normal strength/posture of neck musculature. Neuropsych: Oriented- Person, place, time. (AAOx3), Mood/affect- normal and congruent. Able to articulate well. Speech-Normal speech, normal rate, normal tone, normal use of language, volume and coherence. Thought content- normal with ability to perform basic computations and apply abstract thought/reason. Lymphatic: Head/Neck- normal size and non tender to palpation. Axillary- normal size and non tender to palpation. Laboratory Results - last 24 hr 09/27/18 09/27/18 09/27/18 10:55 10:55 10:55 WBC 8.11 RBC 4.10 L Hgb 11.9 L Hct 35.3 L MCV 86.1 MCH 29.0 MCHC 33.7 RDW Coeff of Samantha 12.5 Plt Count 201 Immature Gran % (Auto) 0.7 Neut % (Auto) 70.4 Lymph % (Auto) 18.4 [place] % (Auto) 10.0 Eos % (Auto) 0.0 Baso % (Auto) 0.5 Immature Gran # (Auto) 0.1 Neut # (Auto) 5.7 Lymph # (Auto) 1.5 [place] # (Auto) 0.8 Eos # (Auto) 0.0 Baso # (Auto) 0.0 Sodium 137.5 Potassium 3.80 Chloride 97.9 L Carbon Dioxide 26.1 Anion Gap 17.30 BUN 17.9 Creatinine 1.25 H Estimated GFR (MDRD) 59.00 BUN/Creatinine Ratio 14.32 Glucose 119.4 H Hemoglobin A1c 8.08 H Lactic Acid Calcium 8.62 Total Bilirubin 0.78 AST 49.6 ALT 55.5 H Alkaline Phosphatase 48.2 L Total Protein 7.56 Albumin 4.23 Globulin 3.33 Albumin/Globulin Ratio 1.27 Procalcitonin 09/27/18 09/27/18 09/28/18 11:20 11:20 04:45 WBC 8.14 RBC 3.47 L Hgb 10.1 L Hct 30.5 L MCV 87.9 MCH 29.1 MCHC 33.1 RDW Coeff of Samantha 12.8 Plt Count 159 Immature Gran % (Auto) 0.7 Neut % (Auto) 66.5 Lymph % (Auto) 23.6 [place] % (Auto) 8.8 Eos % (Auto) 0.0 Baso % (Auto) 0.4 Immature Gran # (Auto) 0.1 Neut # (Auto) 5.4 Lymph # (Auto) 1.9 [place] # (Auto) 0.7 Eos # (Auto) 0.0 Baso # (Auto) 0.0 Sodium Potassium Chloride Carbon Dioxide Anion Gap BUN Creatinine Estimated GFR (MDRD) BUN/Creatinine Ratio Glucose Hemoglobin A1c Lactic Acid 1.35 Calcium Total Bilirubin AST ALT Alkaline Phosphatase Total Protein Albumin Globulin Albumin/Globulin Ratio Procalcitonin 0.36 09/28/18 04:45 WBC RBC Hgb Hct MCV MCH MCHC RDW Coeff of Samantha Plt Count Immature Gran % (Auto) Neut % (Auto) Lymph % (Auto) [place] % (Auto) Eos % (Auto) Baso % (Auto) Immature Gran # (Auto) Neut # (Auto) Lymph # (Auto) [place] # (Auto) Eos # (Auto) Baso # (Auto) Sodium 135.8 Potassium 3.82 Chloride 99.2 Carbon Dioxide 26.2 Anion Gap 14.22 BUN 16.5 Creatinine 1.27 H Estimated GFR (MDRD) 57.00 BUN/Creatinine Ratio 12.99 Glucose 91.3 Hemoglobin A1c Lactic Acid Calcium 8.18 L Total Bilirubin 0.70 AST 49.4 ALT 53.7 H Alkaline Phosphatase 43.8 L Total Protein 6.57 Albumin 3.51 Globulin 3.06 Albumin/Globulin Ratio 1.14 Procalcitonin (1) Cellulitis Status: Acute Code(s): L03.90 - CELLULITIS, UNSPECIFIED SNOMED Code(s): 343765626 (2) SIRS (systemic inflammatory response syndrome) Status: Acute Code(s): R65.10 - SIRS OF NON-INFECTIOUS ORIGIN W/O ACUTE ORGAN DYSFUNCTION SNOMED Code(s): 642322277 (3) Fever Status: Acute Code(s): R50.9 - FEVER, UNSPECIFIED SNOMED Code(s): 057623098 (4) Tick bite Status: Acute Code(s): T14.8 - OTHER INJURY OF UNSPECIFIED BODY REGION * DO NOT USE * SNOMED Code(s): 77517466 (5) Insulin dependent diabetes mellitus Status: Acute Code(s): E11.9 - TYPE 2 DIABETES MELLITUS WITHOUT COMPLICATIONS ; Z79.4 - [employer] (CURRENT) USE OF INSULIN SNOMED Code(s): 11025293 (6) Essential (primary) hypertension Status: Acute Code(s): I10 - ESSENTIAL (PRIMARY) HYPERTENSION SNOMED Code(s) : 83591993 (7) BMI over 35 Status: Acute Code(s): QUL6121 - SNOMED Code(s): 233983092 (8) Insomnia Status: Acute Code(s): G47.00 - INSOMNIA, UNSPECIFIED SNOMED Code(s): 697883097 (9) IV infiltrate Status: Acute Code(s): T80.1XXA - VASCULAR COMP FOL INFUSN, TRANFS AND THERAPUTC INJECT, INIT SNOMED Code(s): 92274690 Plan: Cellulitis/SIRS/?Tick Bite w/ high likelihood of RMSF: Abx day 2. HD #2. The patient is improving. Even per he is looking better. Afebrile since 1800 . On #2 abx, on topical bactroban. DM sugars are controlled. He did have infiltration of the hand and we will stop IV. I have changed his doxy from IV to oral. I will continue 7-10 day course. Also R/B/A to clinda d/w patient/ with nursing in room. Discussed probiotics. DIscussed clinda QID x 7 days. Topical bactroban to continue. Second larger rim has abated. His systemic rash appears better. We will continue to monitor 24 more hours. Tylenol for fever. Encourage meals. Home meds for DM. BP is stable. - Continue Admit as obs - Telemetry - CBC/CMP in am tomorrow - Doxy 100 BID * 7 days (CHANGE TO ORAL) - Clinda 300 QID * 7 days (CONTINUE ORAL) - Bactroban topically - Tylenol 500 TID. Insulin Dependent DM 2: A1C goal <7%. He is at 8.08. Continue home meds. Accuchecks look okay. - Continue home DM meds. (Glipizide 10 BID, Vicoza 0.6 daily, metformin 1000 daily, mealtime insulin). Essential HTN: Chronic/stable. Continue to monitor BP. I will continue to monitor overnight, see if fever continues to improve. No chest pain, vision changes, unexplained GARCIA consider. - Continue home meds (lisinopril 40 daily, hctz 25 daily, atenolol 100 daily Normocytic anemia: ER note form 09/26 he was at 12.4, now 11.9. this am 10.1. ? Hemodilution. Stopped fluids, check again in am tomorrow, consider extra labs as needed (RETIC, FOBT). RDW is normal, MCV is normal. Monitor CBC - CBC in am tomorrow. IV INFILTRATED: hand elevated, light wrap applied, monitor. IV fluids held, IV abx changed to PO Insomnia: Trazodone did not work. Will add temazepam. Afib noted on ER MOnitor: Still not present in hospital. He has been SR BBB while in hospital and he had normal sinus on exam. Will continue to monitor. Nausea: PRN ZOFRAN Code Status: Full code. Diet: ADA 1800 kcal. Activity: Ad edmund DVT prophy: Lovenox 40 mg subcut. Disposition: He is improving. I will monitor 24 more hours. Fever free now since 09/27 1800. Continue tylenol, continue current abx. Monitor CBC for hgb change tomorrow. DM stable, HTN stable, chronic obesity stable. tick labs pending. Rounding today >35 minutes. Discussed care with /patient, overnight nurse, reviewed am labs, discussed am telemetry with them. >35 minutes spent on rounding/education/patient care today.
[2018-09-28] MEDS: SODIUM CHLORIDE 1,000 ML IV SCH (10:45)
[2018-09-28] MEDS: DOXYCYCLINE HYCLATE PO SCH ×2 (13:19→21:36)
[2018-09-28] MEDS: DOXY-100 100 MG in SODIUM CHLORIDE 100 ML IV SCH (13:23)
[2018-09-28] MEDS ORDERED: VALIUM PO STA (18:22)
[2018-09-28] MEDS ORDERED: TYLENOL PO STA (19:42)
[2018-09-28] MEDS ORDERED: ALBUTEROL 0.083% NEB NEB STA (19:46)
--- NOTE | 2018-09-28 20:23 | DI ---
EXAM: AP single view of the chest. HISTORY: Shortness of breath. FINDINGS: The bones are unremarkable. The cardiac silhouette and pulmonary vasculature are within no rmal limits. The costophrenic angles are clear. No infiltrate or consolidation. Impression: No acute cardiopulmonary disease.
[2018-09-28] MEDS ORDERED: DESYREL PO SCH (21:00)
[2018-09-28] MEDS ORDERED: BENADRYL IM STA (21:23)
[2018-09-28] MEDS ORDERED: DECADRON 4 MG/ML SDV IM STA (21:23)
[2018-09-28] MEDS: FLORASTOR PO SCH (21:36)
[2018-09-28] MEDS: ZOCOR PO SCH (21:36)
[2018-09-28] MEDS: ZANTAC PO SCH (21:36)
--- NOTE | 2018-09-28 22:23 | PCM.PROG ---
Subjective: Critical Care Note: Status change: Respiratory distress/failure RR increased suddenly to 34 and wheezing/tachypnea/ tachycardia. Patient was rounded upon this am around 9am (not part of time listed) and discussed case with /patient. The patient was afebrile 09/27 99.5 through 05 :36 98.9. At 10:00 he had fever 102.2, then back up to 103 at 19:24. Left hand was edematous. He had no GARCIA, he had systemic pink salmon colored rash, mild nausea. No reported GARCIA, no body aches, no urinary symptoms, no stooling symptoms, no Constipation, no diarrhea, no myalgia, no other symptoms. Again as of this am he was afebrile up until 10 am. We addressed his infiltrated IV x 2. We noted lungs clear by nursing and myself and he had no issues. 14:43 today he c/o chills, wheezing, SOA, O2 96% temp 100.4 Lungs clear despite audible wheezing, RR 24, felt aweful and had no pain. He was given temazepam by me this am around this time and he slept a good solid 2.5-3 hours and noted it worked well for that period of time. He showered and at 1733 chills, temp back up to 102.3, tylenol 500 PO given. 18:20 worsening wheezing, SOA, temp 100.4 and then up to 103 at 19:24. They called me as he was having what appeared to be panic attack. I ordered valium 5mg. BP has been okay and normal up until 1800 today (up to 154/82 and 147/83 19:24). Pulse increased to 104 at 1400 and was 96, 99 this evening. O2 was 95-97 up until 19:24 and was 94 on RA and was added to NC> I was contacted again and came to hospital arriving at 20:30. Critical care time 20:30-22:00. I ordered troponin I, procalc, Lactate, repeat CXR, ABG, contacted respiratory, discussed case with ER for possible respiratory failure. RR up to 34 at 19:24. His EKG returned NSR, nl axis, normal SD, normal QRS, normal QTC, ?LAE, no Q waves in V1. NOrmal R wave progression. No e/o SD, no PE criteria. I will switch him to admission at this time as fever has returned. CXR ordered and returned negative. ABG was ordered. Lactic acid is better now than admit at 0.83, troponinI was okay 0.019 and I repeated another at 0200. Procalcitonin negative. I have had them insert a new IV and he went for CT PE protocol chest at 22:05. ABG was cancelled as he spontaneosly started breathing more comfortable. Myself, , Daughter-in Law Siria and her James, Nurse Sendy, Respiratory therapy were in room with patient from 20:30-21:45. LUngs clear, HR normal, no c/o GARCIA, no URI symptoms, SOA noted but then spontaneously resolved, audible wheezing noted then spontaneously resolved, never diaphoretic, never chest pain, never GARCIA , never OSEI, never PND, never Orthopnea, supple neck throughout entirety, no back pain, no joint pain, +RASH systemically, + cellulitis LLQ abdomen. Other than these symptoms he solely feels tired/fatigued. He had a BM this am that he reported was somewhat looser but no blood. He has had 2 unmeasured voids. I have ordered CT PE protocol chest, I have ordered decadron 8mg IM and benadryl 25mg IM. I will f/u with the CT PE protocol. Unknown cause of symptoms. ?Panic attack. ?Allergic reaction. He never had shock vitals. His labs returned okay, WBC was normal and he did have a mild anemia. CBC/CMP in am. Not on fluids at present as he is tolerating liquids but not wanting food. He was doing great up until rounding and then worsened. Now I reviewed his previous history and noted Er visit 1 month ago with lung pain/spasm in back and was given muscle relaxer. He has been on lovenox. He has had BC x 2 negative 24 hours. NO urinary symptoms. Tick panels are still pending. I will give the benadryl and the decadron, monitor his sugars. Will call ID in the am if still running fever. He is on HD #2 of doxy/clinda. This week he has been given bactrim, vanco, unasyn, and then the clinda/doxy by me. Allergic reaction is possible. Respiratory arrest abruptly stopped. None of the time above is counting out of room time or documentation time. This was all in front of patient who was having an acute change of status. Critical care time 20:30-22:00 [id number] First 74 minutes [id number] Additional up to 30 minutes. [id number]: Independent interpretation of EKG Patient changed from obs to inpatient. Objective: Vital Signs - 8 hr 09/28/18 09/28/18 09/28/18 18:00 19:24 21:08 Temperature 100.4 F H 103.0 F H 100.4 F H Pulse Rate 96 H 99 H Respiratory 24 34 H Rate Blood Pressure 154/82 H 147/83 H O2 Sat by Pulse 97 94 L Oximetry REVIEW OF SYMPTOMS: (Positives bolded) General: weight loss, fever, chills, night sweats, fatigue, appetite loss HEENT: blurry vision, eye pain, eye discharge, dry eyes, decreased vision, sore throat tinnitus, bloody nose, hearin gloss, sinus pain/pressure, ear pain/ pressure. Respiratory: shortness of breath, cough, hemoptysis, wheezing, pleurisy, Cardiovascular: chest pain, PND, palpitation, edema, orthopnea, syncope, swelling of extremities Gastro: Nausea, vomiting, diarrhea, hematemesis, abdominal pain, constipation Genito: hematuria, dysuria, glycosuria, hesitancy, frequency, incontinence [place]: Arthralgia, myalgia, muscle weakness, joint swelling, NSAID use Skin: rash, pruritis, sores, nail changes, skin thickening, change in wart/mole , itching, rash, new lesions, pruritus, nail changes Neuro: Migraine, numbness, ataxia, tremor, vertigo, weakness, memory loss, Irritability, dizziness Endocrine: excessive thirst, polyuria, cold intolerance, heat intolerance, goiter Psychiatric: depression, anxiety, anti-depressants, alcohol abuse, drug abuse, insomnia, change in sleep pattern and mood changes Heme/lymph: easy bruising, bleeding gums, blood clots, swollen glands, lymphedema, Allergic/immune: allergic rhinitis, hay fever, asthma, hives Constitutional: Appearance-Respiratory distress, albuterol given, ordered ABG, ordered labs. Audible wheezing and acute change ins tatus. in room, daughter in law in room, her in room, nurse and respiratory therapy in room. Patient had orders for EKG ordered and interpreted by me. New labs as listed Troponin, procalc, lactic acid. Change in vitals. Rash unchanged. ?Drug eruption, ?tick rash, unknown etiology. Integumentary: General-rash is present UE, LE, Abdomen, torso more prominent, Palpation- Tight tissue about the left hand resolving, watch removed, ring removed. Small ecchymosis left bicep proximally at site of infiltration. Capillary refill is normal bilateral Upper and lower extremity. 5mm x 5mm central skin breakdown/scab. 7 cm x 3 cm erythema with skin pen marking. Second rim documented as 13cm x 7 cm yesterday remains resolved. Blanching erythema. No discomfort. Not fluctuant. This has ?EM appearance to it. Head/Neck: Head- normocephalic and atraumatic. Neck- without visible/palpable lumps or pulsations. Palpation- No bony tenderness about head/neck along frontal, occipital, temporal, parietal, mastoid, jawline, zygoma, orbit or any other location. NO temporal artery tenderness. No TMJ tenderness. Neck Supple. Thyroid-No thyromegaly, no nodules Eye: Bilaterally PERRLA, EOMI. No discharge. Upper and lower eyelids are normal. Sclera/conjunctiva normal without discharge. Cornea is normal and clear. Lens is normal. Eyeball appears normal. No ciliary flushing, no conjunctival injection. ENMT: Nares- bilateral quiet airflow, no discharge. Nasal mucosa- No bleeding noted and no ulcerations observed. [place], moist. Turbinates non boggy. Lips- normal color, moist without cracks/lesions Oral Cavity/Palate- hard/soft palate intact without lesions, oral mucosa pink and moist. Dentition assessed [] and discussed appropriate oral care. Tongue normal midline. Oropharynx- no pharyngeal erythema, Uvula midline. No post nasal drip. No exudate. Salivary glands- Non tender to palpation CHEST/LUNG: Auscultation- Breath sounds rapid, tachypnic, audible wheezing. This abruptly stopped and he was clear. Lungs clear throughout entire encounter this pm but all of a sudden wheezing stopped. No egophany, no pectorilquy. NO e/o consolidation. NO salivation, no lacrimation, no drainage of any kind. CARDIOVASCULAR: Auscultation- Regular rate and rhythm. Borderline tachy. ABDOMEN: Inspection- normal and no visible pulsations. Normal contour. Auscultation- Bowel sounds normal, no abdominal bruits. Palpation/Percussion- soft, non-tender, no rebound tenderness, no rigidity (guarding), no jar tenderness, no masses. Liver-no hepatomegaly, Spleen no splenomegaly, Hernias - none. Rectal not examined. Lesion lower abdomen as listed. Peripheral Vascular: Lower extremity- Normal temperature with pink nailbeds and no ulcerations. DP pulses 2+ bilaterally. Pedal hair reduced. Subungual hematoma toenail, subacute. Musculoskeletal: Generalized-No generalized swelling or edema of extremities, no digital clubbing or cyanosis, neurovascularly intact all four extremities. Neurological: General- Moves all 4 extremities symmetrically. Symmetrical face and body posture. Cranial nerves- individually evaluated II-XII and intact. PERRLA, Normal EOMI, visual/special senses appear intact, Face is symmetrical and normal sensation/movement, normal tongue, normal strength/posture of neck musculature. Neuropsych: Oriented- Person, place, time. (AAOx3), Mood/affect- normal and congruent. Able to articulate well. Speech-Normal speech, normal rate, normal tone, normal use of language, volume and coherence. Thought content- normal with ability to perform basic computations and apply abstract thought/reason. Appears tired. Lymphatic: Head/Neck- normal size and non tender to palpation. Axillary- normal size and non tender to palpation. (1) Cellulitis Status: Acute Code(s): L03.90 - CELLULITIS, UNSPECIFIED SNOMED Code(s): 888183486 (2) SIRS (systemic inflammatory response syndrome) Status: Acute Code(s): R65.10 - SIRS OF NON-INFECTIOUS ORIGIN W/O ACUTE ORGAN DYSFUNCTION SNOMED Code(s): 011452747 (3) Fever Status: Acute Code(s): R50.9 - FEVER, UNSPECIFIED SNOMED Code(s): 111806877 (4) Tick bite Status: Acute Code(s): T14.8 - OTHER INJURY OF UNSPECIFIED BODY REGION * DO NOT USE * SNOMED Code(s): 32927826 (5) Insulin dependent diabetes mellitus Status: Acute Code(s): E11.9 - TYPE 2 DIABETES MELLITUS WITHOUT COMPLICATIONS ; Z79.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 We discussed the tick and he does not remember the type. WE discussed STARI , discussed [place], discussed Flu like illness. He does not have GARCIA, myalgia , no leukopenia, he has minimally elevated aminotransferase ALT level. REsearched today Borrelia miyamotoi and relapsing fevers with fatigue and often poor response to doxy. Viral processes have been considered to include mosquito. HIs lack of pain, GARCIA are odd. I will get a blood smear. Empiric doxy to continue. May consider d/w ID tomorrow. STARI to be considered. Await PE protocol CT. - Independent review of EKG - Critical care time. - Symptoms abruptly stopped and he slept. - Benadryl 25 IM - Decadron 8 mg IM given.
--- NOTE | 2018-09-28 22:32 | CT ---
EXAM: CT pulmonary angiogram. HISTORY: Acute shortness of breath. PROCEDURE: After the intravenous injection of contrast a CT pulmonary angiogram was performed with c ontiguous axial CT images of the chest with multiplanar reformats, MIP images and 3-D reformats. FINDINGS: There is normal enhancement of the pulmonary arteries with no evidence of pulmonary embolis m. The heart is within normal limits in size. The thoracic aorta is within normal limits in diamete r. There are atherosclerotic calcifications in the thoracic aorta. There are coronary artery calcif ications. There is minimal right basilar atelectasis and/or pneumonia. There are degenerative linda es in the spine. Impression: No evidence of pulmonary embolism. Minimal right basilar atelectasis and/or pneumonia.
[2018-09-29] MEDS: GLUCOTROL PO SCH ×2 (05:52→18:16)
[2018-09-29] MEDS: HUMALOG SUBCUT SCH ×3 (05:53→18:18)
[2018-09-29] MEDS: CLEOCIN PO SCH ×3 (05:53→18:16)
[2018-09-29] MEDS: BACTROBAN TP SCH ×3 (08:37→21:15)
[2018-09-29] MEDS: TENORMIN PO SCH (08:38)
[2018-09-29] MEDS: LYRICA PO SCH (08:38)
[2018-09-29] MEDS: ZESTRIL PO SCH (08:39)
[2018-09-29] MEDS: HYDROCHLOROTHIAZIDE PO SCH (08:40)
[2018-09-29] MEDS: PRILOSEC PO SCH ×2 (08:40→21:14)
[2018-09-29] MEDS: DOXYCYCLINE HYCLATE PO SCH ×2 (08:40→21:14)
[2018-09-29] MEDS: FLORASTOR PO SCH ×2 (08:42→21:14)
[2018-09-29] MEDS: LOVENOX SUBCUT SCH (08:43)
--- NOTE | 2018-09-29 09:06 | PCM.PROG ---
Subjective: 62 yo hospital day #3 admit day 2. I changed him from observation to admission yesterday after event last night requiring critical care time. 1924 skin temp 103 degrees, temp 1800 100.4. Increse in temp, BP okay, HR 99, o2 94 RR 34. He had audible wheezing, no difficulty swallowing, no tongue swelling. 1937 they talked with me albuterol ws ordered. CXR ordered stat dose of tylenol was given. 2005 status update, distress respiratory, met sepsis protocol. He was on lovenox. Lactic acid procalc ordered. Troponin ordered. 2021 they talked with me again troponin was drawn, xray reviewed. I was in hospital by 2019 reviewed the new labs/imaging and assessed patient by 2029. I talked with tiffany with respiratory reviewed EKG personally, had very long discussion with patient/ family about the situation. Patient still having issues breathing but not as before. Ordered stat benadryl, decadron, oxygen and stat CT PE protocol despite being on lovenox. Acute sudden change consistent with allergic reaction , panic attack etc. IV placed at 1. By 22:00 the event was completely resolved and the patient was able to again rest in bed. Total critical care time for this event was 20:30-22:00. The issues started well before that time. Reviewed am nursing notes he awoke about 3 am bed sheets and gown wet with sweat. IV dislodged while sleeping. Full bed change completed. Placed into clean gown/bed and went back to sleep. [place] a lot better this am. More alert, rested. 0530 felt much better, sweating. Temp afebrile, BP 111/65, HR 79, RR 18. No SOA, no swelling of lips, tongue, face. O2 2L. NO IV at this time. BG elevated secondary to steroids given night before. He has been afeberile since 22:00 last night. Tele SR continuously since 9909/28/18 where he had BBB SR. Accucheck this am was 352, was 83 last night at 23:00. 2 voids documented yesterday. Urine output 900 ml yesterday (but 2 unmeasured). Appetite reported as improved but did not show itself on the %meal consumed. Patient was given 20 units of humalog at 17:12 09/28/18. Home meds continued. WBC 11.62, hgb 10.2, with prominent neutrophilia consistent with steroidal demargination. Sodium 134.4, cl96.5. Glucose 223.4. Sodium corrects tonormal 136 Alfred equation and 137 Jaylen. AST 65, ALT 64.1. Troponin x 2 were negative. EKG was negative (interpreted by me). Calcium appears low but corrects to 8.4 based on albumin of 3.75 today. His Calcium yesterday corrected to 8.6. in room, patient is feeling much better. He had fever break overnight. No fever now, still w/o GARCIA, no N/V/D. He feels steroid has awoken him from "fog." Improved, hungry, felt rested, rash is better. Monitor another 24 hours then d/c home likely tomorrow. HD #3. Abx day 05/16 clinda Day 05/19 doxycycline. REVIEW OF SYMPTOMS: (Positives bolded) General: weight loss, fever, chills, night sweats, fatigue (less), appetite loss (less) HEENT: blurry vision, eye pain, eye discharge, dry eyes, decreased vision, sore throat tinnitus, bloody nose, hearin gloss, sinus pain/pressure, ear pain/ pressure. Respiratory: shortness of breath, cough, hemoptysis, wheezing, pleurisy, Cardiovascular: chest pain, PND, palpitation, edema, orthopnea, syncope, swelling of extremities Gastro: Nausea, vomiting, diarrhea, hematemesis, abdominal pain, constipation Genito: hematuria, dysuria, glycosuria, hesitancy, frequency, incontinence [place]: Arthralgia, myalgia, muscle weakness, joint swelling, NSAID use Skin: rash, pruritis, sores, nail changes, skin thickening, change in wart/mole , itching, rash, new lesions, pruritus, nail changes Neuro: Migraine, numbness, ataxia, tremor, vertigo, weakness, memory loss, Irritability, dizziness Endocrine: excessive thirst, polyuria, cold intolerance, heat intolerance, goiter Psychiatric: depression, anxiety, anti-depressants, alcohol abuse, drug abuse, insomnia, change in sleep pattern and mood changes Heme/lymph: easy bruising, bleeding gums, blood clots, swollen glands, lymphedema, Allergic/immune: allergic rhinitis, hay fever, asthma, hives Last nights symptoms have now resolved. Objective: Vital Signs - 24 hr 09/28/18 09/28/18 09/28/18 10:00 13:28 14:00 Temperature 102.2 F H 100.4 F H 100.2 F H Pulse Rate 97 H 104 H Respiratory 18 22 Rate Blood Pressure 109/72 112/88 O2 Sat by Pulse 93 L 96 95 Oximetry 09/28/18 09/28/18 09/28/18 18:00 19:24 20:00 Temperature 100.4 F H 103.0 F H Pulse Rate 96 H 99 H Respiratory 24 34 H 30 H Rate Blood Pressure 154/82 H 147/83 H O2 Sat by Pulse 97 94 L Oximetry 09/28/18 09/28/18 09/29/18 21:08 22:00 02:00 Temperature 100.4 F H 98.9 F 98.9 F Pulse Rate 94 H 70 Respiratory 20 18 Rate Blood Pressure 158/80 H 135/74 O2 Sat by Pulse 96 96 Oximetry 09/29/18 05:34 Temperature 97.6 F Pulse Rate 79 Respiratory 18 Rate Blood Pressure 111/65 O2 Sat by Pulse 99 Oximetry Constitutional: Appearance-No acute distress, Consistent with stated age. lying in bed, in bedside chair Orientation- Oriented x 3, alert Build and Nutrition-[obese male BMI 35. General- Patient is pleasant and cooperative with the interview and exam. Appears more awake, rash is fading. Abdomen remaind inflamed 8cm x 3m cm today. NO bullseye now. Systemic rash appears to be fading. Integumentary: General-rash is present UE, LE, Abdomen, much more faded than previously. Now nearly gone. Palpation- Hand tightness on left resolved. Central 5mm x 5mm central skin breakdown/scab unchanged. Possibly a little wider overal erythema today with 9 cm x 3 cm erythema with skin pen marking still surrounding lesion completely Blanching erythema. Warm to touch, no pain. No discomfort. Not fluctuant. Head/Neck: Head- normocephalic and atraumatic. Neck- without visible/palpable lumps or pulsations. Palpation- No bony tenderness about head/neck along frontal, occipital, temporal, parietal, mastoid, jawline, zygoma, orbit or any other location. NO temporal artery tenderness. No TMJ tenderness. Neck Supple. Thyroid-No thyromegaly, no nodules Eye: Bilaterally PERRLA, EOMI. No discharge. Upper and lower eyelids are normal. Sclera/conjunctiva normal without discharge. Cornea is normal and clear. Lens is normal. Eyeball appears normal. No ciliary flushing, no conjunctival injection. ENMT: Nares- bilateral quiet airflow, no discharge. Nasal mucosa- No bleeding noted and no ulcerations observed. [place], moist. Turbinates non boggy. Lips- normal color, moist without cracks/lesions Oral Cavity/Palate- hard/soft palate intact without lesions, oral mucosa pink and moist. Dentition assessed [] and discussed appropriate oral care. Tongue normal midline. Oropharynx- no pharyngeal erythema, Uvula midline. No post nasal drip. No exudate. No swelling of lips/tongue. Salivary glands- Non tender to palpation CHEST/LUNG: Inspection- symmetric chest wall no pectus deformity. Normal effort , no distress, no use of accessory muscles. Palpation- nontender sternum, ribline. No abnormal pulsations. Auscultation- Breath sounds normal throughout all lung ros[place]. Normal tracheal sounds, Normal bronchial sounds overlying sternum, Bronchovessicular sounds normal between scapulae posteriorly, Normal vessicular breath sounds heard throughout periphery. Lungs are clear today. Adventitious sounds- No wheezes, rales, rhonchi. Completely normal resp exam today. No egophany, no pectoriloquy. NO issues noted, breathing normally, talks in full sentences. CARDIOVASCULAR: Auscultation- Regular rate and rhythm. No murmur noted in sitting, supine positions. Extremities- no digital clubbing, cyanosis, edema, increased warmth. ABDOMEN: Inspection- normal and no visible pulsations. Normal contour. Auscultation- Bowel sounds normal, no abdominal bruits. Palpation/Percussion- soft, non-tender, no rebound tenderness, no rigidity (guarding), no jar tenderness, no masses. Liver-no hepatomegaly, Spleen no splenomegaly, Hernias - none. Rectal not examined. Lesion lower abdomen as listed. Peripheral Vascular: Lower extremity- Normal temperature with pink nailbeds and no ulcerations. DP pulses 2+ bilaterally. Pedal hair reduced. Subungual hematoma toenail, subacute. Musculoskeletal: Generalized-No generalized swelling or edema of extremities, no digital clubbing or cyanosis, neurovascularly intact all four extremities. Neurological: General- Moves all 4 extremities symmetrically. Symmetrical face and body posture. Cranial nerves- individually evaluated II-XII and intact. PERRLA, Normal EOMI, visual/special senses appear intact, Face is symmetrical and normal sensation/movement, normal tongue, normal strength/posture of neck musculature. Neuropsych: Oriented- Person, place, time. (AAOx3), Mood/affect- normal and congruent. Able to articulate well. Speech-Normal speech, normal rate, normal tone, normal use of language, volume and coherence. Thought content- normal with ability to perform basic computations and apply abstract thought/reason. Lymphatic: Head/Neck- normal size and non tender to palpation. Axillary- normal size and non tender to palpation. Laboratory Last Values WBC 11.62 K/ul (4.2-10.2) H 09/29/18 02:09 RBC 3.48 10^6/ul (4.70-6.10) L 09/29/18 02:09 Hgb 10.2 g/dl (14.0-18.0) L 09/29/18 02:09 Hct 30.5 % (42.0-52.0) L 09/29/18 02:09 MCV 87.6 fl (80.0-94.0) 09/29/18 02:09 MCH 29.3 pg (27.0-31.0) 09/29/18 02:09 MCHC 33.4 (31.8-35.4) 09/29/18 02:09 RDW Coeff of Samantha 12.7 % (11.6-14.8) 09/29/18 02:09 Plt Count 157 10^3/uL (140-440) 09/29/18 02:09 Immature Gran % (Auto) 0.6 % (0.0-5.0) 09/29/18 02:09 Neut % (Auto) 81.4 09/29/18 02:09 Lymph % (Auto) 12.7 (10.0-50.0) 09/29/18 02:09 [place]s % (Auto) 5.0 (0-10) 09/29/18 02:09 Eos % (Auto) 0.0 % (0.0-7.0) 09/29/18 02:09 Baso % (Auto) 0.3 % (0.0-3.0) 09/29/18 02:09 Immature Gran # (Auto) 0.1 (0.0-1.0) 09/29/18 02:09 Neut # (Auto) 9.5 K/ul (2.0-6.9) H 09/29/18 02:09 Lymph # (Auto) 1.5 K/uL (0.60-3.4) 09/29/18 02:09 [place] # (Auto) 0.6 K/uL (0.4-2.0) 09/29/18 02:09 Eos # (Auto) 0.0 K/ul (0.0-0.7) 09/29/18 02:09 Baso # (Auto) 0.0 K/uL (0-0.2) 09/29/18 02:09 Puncture Site Cancelled 09/29/18 05:00 O2 Saturation Cancelled 09/29/18 05:00 ABG pH Cancelled 09/29/18 05:00 ABG pCO2 Cancelled 09/29/18 05:00 ABG pO2 Cancelled 09/29/18 05:00 ABG HCO3 Cancelled 09/29/18 05:00 ABG Total CO2 Cancelled 09/29/18 05:00 ABG Base Excess Cancelled 09/29/18 05:00 [place] Test Cancelled 09/29/18 05:00 O2 Delivery Device Cancelled 09/29/18 05:00 Oxygen Liter Flow Cancelled 09/29/18 05:00 FiO2 % Cancelled 09/29/18 05:00 Sodium 134.4 mmol/L (134.5-145) L 09/29/18 02:09 Potassium 4.43 mmol/L (3.5-5.1) 09/29/18 02:09 Chloride 96.5 mmol/L (98-107) L 09/29/18 02:09 Carbon Dioxide 24.9 mmol/L (22-30.0) 09/29/18 02:09 Anion Gap 17.43 09/29/18 02:09 BUN 20.4 mg/dL (9-20) H 09/29/18 02:09 Creatinine 1.35 mg/dL (0.60-1.10) H 09/29/18 02:09 Estimated GFR (MDRD) 54.00 mL/min 09/29/18 02:09 BUN/Creatinine Ratio 15.11 09/29/18 02:09 Glucose 223.4 mg/dL (74-106) H D 09/29/18 02:09 Hemoglobin A1c 8.08 (4.0-6.0) H 09/27/18 10:55 Lactic Acid 0.83 mmol/L (0.7-2.1) 09/28/18 20:35 Calcium 8.19 mg/dL (8.4-10.2) L 09/29/18 02:09 Total Bilirubin 0.94 mg/dL (0.2-1.3) 09/29/18 02:09 AST 65.0 U/L (17-59) H 09/29/18 02:09 ALT 64.1 U/L (0-50) H 09/29/18 02:09 Alkaline Phosphatase 51.8 U/L (56-119) L 09/29/18 02:09 Troponin I 0.013 ng/ml (0.0000-0.120) 09/29/18 02:09 Total Protein 7.03 g/dL (6.3-8.2) 09/29/18 02:09 Albumin 3.75 g/dL (3.5-5.0) 09/29/18 02:09 Globulin 3.28 09/29/18 02:09 Albumin/Globulin Ratio 1.14 09/29/18 02:09 Procalcitonin 0.32 ng/mL (<0.05) 09/28/18 20:35 CXR Negative EKG: NSR, NL axis, NL OK, NL qrs no acute infarct, no acute st/t changes, no WA , no PE criteria. (1) Cellulitis Status: Acute Code(s): L03.90 - CELLULITIS, UNSPECIFIED SNOMED Code(s): 339163134 (2) SIRS (systemic inflammatory response syndrome) Status: Acute Code(s): R65.10 - SIRS OF NON-INFECTIOUS ORIGIN W/O ACUTE ORGAN DYSFUNCTION SNOMED Code(s): 178452793 (3) Fever Status: Acute Code(s): R50.9 - FEVER, UNSPECIFIED SNOMED Code(s): 239366382 (4) Tick bite Status: Acute Code(s): T14.8 - OTHER INJURY OF UNSPECIFIED BODY REGION * DO NOT USE * SNOMED Code(s): 24033892 (5) Insulin dependent diabetes mellitus Status: Acute Code(s): E11.9 - TYPE 2 DIABETES MELLITUS WITHOUT COMPLICATIONS ; Z79.4 - LANGUAGE ASST (CURRENT) USE OF INSULIN SNOMED Code(s): 47408586 (6) Essential (primary) hypertension Status: Acute Code(s): I10 - ESSENTIAL (PRIMARY) HYPERTENSION SNOMED Code(s) : 23150992 (7) BMI over 35 Status: Acute Code(s): FXQ6819 - SNOMED Code(s): 444119435 (8) Insomnia Status: Acute Code(s): G47.00 - INSOMNIA, UNSPECIFIED SNOMED Code(s): 206415347 (9) IV infiltrate Status: Acute Code(s): T80.1XXA - VASCULAR COMP FOL INFUSN, TRANFS AND THERAPUTC INJECT, INIT SNOMED Code(s): 55095669 Plan: Cellulitis/SIRS/?Tick Bite w/ high likelihood of RMSF: Abx day 3. HD #3 Inpatient day #2. Changed to admit yesterday. The patient is improving yet again despite setback last night. Admitted to inpatient status. Complete 10 days of doxy, 7 days of clinda for now. ?Allergic reaction. Abx are oral. So far plan to d/c tomorrow. Continue tylenol q 4-6 hours for fever. NO e/o PE, ? panic attack last night. Vitals stable this am. - Continue Admit as inpatient - Telemetry - CBC/CMP in am tomorrow - Doxy 100 BID * 10 days (CHANGE TO ORAL) - Clinda 300 QID * 7 days (CONTINUE ORAL) - Bactroban topically - Tylenol 500 q4-6 hours Insulin Dependent DM 2: A1C goal <7%. He was at 8.08. Hyperglycemia with steroids. Monitor and correct. I will use QACHS accucheck and add sliding scale. Otherwise Continue home meds. Accuchecks up w/ steroids. - Continue home DM meds. (Glipizide 10 BID, Vicoza 0.6 daily, metformin 1000 daily, mealtime insulin). - SSI. Essential HTN: Chronic/stable. Continue to monitor BP. - Continue home meds (lisinopril 40 daily, hctz 25 daily, atenolol 100 daily Low sodium: Corrects to normal. Low Calcium: Corrects to normal. Normocytic anemia: ER note form 09/26 he was at 12.4, now 11.9. to 10.1 and up a little to 10.2. Normocytic. Monitor CBC - CBC in am tomorrow. IV INFILTRATED: hand elevated, light wrap applied, monitor. IV fluids held, IV abx changed to PO. Insomnia: Trazodone did not work. Added temazepam then reaction. I will not use this again. Benadryl 25mg PO BID PRN. Afib noted on ER MOnitor: Still not present in hospital. SR throughout stay. Nausea: PRN ZOFRAN Code Status: Full code. Diet: ADA 1800 kcal. Activity: Ad edmund DVT prophy: Lovenox 40 mg subcut. Disposition: He is improving despite setback last night. Calcium corrects. Labs are okay chronic anemia. Will need d/c and f/u with PCP in next 1 week. Would like 10-14 day course doxy, would like 7 day course of clinda, continue bactroban. Sodium appeared to drop but corrected to normal, calcium appeared to be low but was normal based on albumin of 3.75. Repeat sepsis labs last night negative, EKG negative, PE protocol CT negative. ?Atelectasis. NO e/o pneumonia. Fever this am is abated. He is feeling better. I believe that his fever has broken. He is hungry, more energy. Steroids are helping, benadryl has helped. ?Allergic reaction. Unknown etiology as he has received several classes of abx this week. Plan at present is d/c tomorrow. >35 minutes spent on rounding this am. happy with care. Patient happy with care. No further issues since leaving patient about 00:00 this am. Will f/u with him tomorrow.
[2018-09-29] MEDS: NON-FORMULARY MEDICATION (Liraglutide [Victoza 3-Pak] 0.6 MG) SQ SCH (14:40)
[2018-09-29] MEDS: ELAVIL PO SCH (21:14)
[2018-09-29] MEDS: ZANTAC PO SCH (21:14)
[2018-09-29] MEDS: ZOCOR PO SCH (21:15)
[2018-09-30] MEDS: CLEOCIN PO SCH ×2 (00:58→05:37)
[2018-09-30 04:50] VITALS: TEMP 98.7
[2018-09-30] MEDS: HUMALOG SUBCUT SCH (05:36)
[2018-09-30] MEDS: GLUCOTROL PO SCH (05:37)
--- NOTE | 2018-09-30 08:01 | PCM.DC ---
Final Diagnosis: 1. Cellulitis w/ SIRS/Fever up to 103 degrees 2. Concern for tick fever/tick bite 3. Hypocalcemia: Corrected calcium normal. 4. Hypokalemia 5. bmi 35 6. DM 2 not controlled/ IDDM 7. Essential (primary) hypertension (Acute) 8 IV infiltrate (Acute) 9 Insomnia (Acute) 10. Leukocytosis likely demargination (1) Cellulitis Status: Acute Code(s): L03.90 - CELLULITIS, UNSPECIFIED SNOMED Code(s): 367310554 (2) SIRS (systemic inflammatory response syndrome) Status: Acute Code(s): R65.10 - SIRS OF NON-INFECTIOUS ORIGIN W/O ACUTE ORGAN DYSFUNCTION SNOMED Code(s): 956406697 (3) Fever Status: Acute Code(s): R50.9 - FEVER, UNSPECIFIED SNOMED Code(s): 144720574 (4) Tick bite Status: Acute Code(s): T14.8 - OTHER INJURY OF UNSPECIFIED BODY REGION * DO NOT USE * SNOMED Code(s): 41558022, 546436506 Qualifiers: Encounter type: initial encounter Qualified Code(s): W57.XXXA - Bitten or stung by nonvenomous insect and other nonvenomous arthropods, initial encounter (5) Insulin dependent diabetes mellitus Status: Acute Code(s): E11.9 - TYPE 2 DIABETES MELLITUS WITHOUT COMPLICATIONS ; Z79.4 - MCC (CURRENT) USE OF INSULIN SNOMED Code(s): 89681327 (6) Essential (primary) hypertension Status: Acute Code(s): I10 - ESSENTIAL (PRIMARY) HYPERTENSION SNOMED Code(s) : 71663352 (7) BMI over 35 Status: Acute Code(s): RED3200 - SNOMED Code(s): 853529739 (8) Insomnia Status: Acute Code(s): G47.00 - INSOMNIA, UNSPECIFIED SNOMED Code(s): 900401793 (9) IV infiltrate Status: Acute Code(s): T80.1XXA - VASCULAR COMP FOL INFUSN, TRANFS AND THERAPUTC INJECT, INIT SNOMED Code(s): 13987805 Reason for Hospitalization: 1 week history of fever up to 103, cellulitis lower abdomen and concern for ? tick bite. Polypharmacy, several abx used the week prior to admit. Patient was seen in UC, PCP office, ED at and then our ED and ultimately admitted by hi. DM 2 non controlled, Essential HTN controlled. Mild electrolyte abnl, moderate anemia improving. Prognosis at Discharge: Good. Marked improvement. Afebrile 24 hours prior to d/c home. WEight stable. BMI 35. DM is mildly worse due to steroidal effect. leukocytosis likely demargination. Resume home meds and f/u 10/11/18 to re-revaluate and discuss further. Condition at Discharge: Improved/Stable. Patient is doing much better. Pain free, fever free, DM 2 sugars are up a little, anemia is improving. Low K+ to be replaced wiht new rx. Home Abx to be given. The patient labs look okay. Chronic diabetes. Hypokalemia/hypocalcemi to be further evaluated. CBC/CMP in 1 week. He has appt with MO this sunday. Has appt with hi 10/11/18 1500. Medications at Discharge: Ambulatory Orders Medication Instructions Recorded Amitriptyline HCl [Elavil] 12.5 mg PO BEDTIME 09/27/18 Atenolol 100 mg PO DAILY 09/27/18 Clobetasol Propionate/Emoll 1 mg TP PRN PRN 09/27/18 [Clobetasol Emollient 0.05% Crm] Glipizide 10 mg PO BID 09/27/18 Hydrochlorothiazide 25 mg PO DAILY 09/27/18 Insulin Aspart [Novolog Flexpen] 20 units SQ TIDAC 09/27/18 Liraglutide [Victoza 3-Ben] 0.6 mg SQ DAILY 09/27/18 Lisinopril [Zestril] 40 mg PO DAILY 09/27/18 Meclizine HCl 25 mg PO PRN PRN 09/27/18 Metformin HCl 1,000 mg PO DAILY 09/27/18 Omeprazole [Prilosec] 20 mg PO DAILY 09/27/18 Pregabalin [Lyrica] 150 mg PO BEDTIME 09/27/18 Ranitidine HCl 150 mg PO BEDTIME 09/27/18 Simvastatin 40 mg PO BEDTIME 09/27/18 Clindamycin HCl [Cleocin] 300 mg PO Q6HR 5 Days #10 cap 09/30/18 Doxycycline Hyclate 100 mg PO Q12HR 7 Days #14 capsule 09/30/18 Mupirocin [Bactroban] 1 applic TP TID 7 Days #1 tube 09/30/18 Potassium Chloride [K-Dur] 20 meq PO DAILY 30 Days #30 tab 09/30/18 Saccharomyces Boulardii [Florastor] 250 mg PO BID 30 Days #60 capsule 09/30/18 Lab/Diagnostics: Laboratory Last Values WBC 12.10 K/ul (4.2-10.2) H 09/30/18 07:17 RBC 3.75 10^6/ul (4.70-6.10) L 09/30/18 07:17 Hgb 10.8 g/dl (14.0-18.0) L 09/30/18 07:17 Hct 31.8 % (42.0-52.0) L 09/30/18 07:17 MCV 84.8 fl (80.0-94.0) 09/30/18 07:17 MCH 28.8 pg (27.0-31.0) 09/30/18 07:17 MCHC 34.0 (31.8-35.4) 09/30/18 07:17 RDW Coeff of Samantha 12.5 % (11.6-14.8) 09/30/18 07:17 Plt Count 196 10^3/uL (140-440) 09/30/18 07:17 Immature Gran % (Auto) 1.4 % (0.0-5.0) 09/30/18 07:17 Neut % (Auto) 71.5 09/30/18 07:17 Lymph % (Auto) 18.0 (10.0-50.0) 09/30/18 07:17 [place] % (Auto) 8.7 (0-10) 09/30/18 07:17 Eos % (Auto) 0.1 % (0.0-7.0) 09/30/18 07:17 Baso % (Auto) 0.3 % (0.0-3.0) 09/30/18 07:17 Immature Gran # (Auto) 0.2 (0.0-1.0) 09/30/18 07:17 Neut # (Auto) 8.7 K/ul (2.0-6.9) H 09/30/18 07:17 Lymph # (Auto) 2.2 K/uL (0.60-3.4) 09/30/18 07:17 [place] # (Auto) 1.1 K/uL (0.4-2.0) 09/30/18 07:17 Eos # (Auto) 0.0 K/ul (0.0-0.7) 09/30/18 07:17 Baso # (Auto) 0.0 K/uL (0-0.2) 09/30/18 07:17 Puncture Site Cancelled 09/29/18 05:00 O2 Saturation Cancelled 09/29/18 05:00 ABG pH Cancelled 09/29/18 05:00 ABG pCO2 Cancelled 09/29/18 05:00 ABG pO2 Cancelled 09/29/18 05:00 ABG HCO3 Cancelled 09/29/18 05:00 ABG Total CO2 Cancelled 09/29/18 05:00 ABG Base Excess Cancelled 09/29/18 05:00 [place] Test Cancelled 09/29/18 05:00 O2 Delivery Device Cancelled 09/29/18 05:00 Oxygen Liter Flow Cancelled 09/29/18 05:00 FiO2 % Cancelled 09/29/18 05:00 Sodium 136.4 mmol/L (134.5-145) 09/30/18 07:17 Potassium 3.43 mmol/L (3.5-5.1) L 09/30/18 07:17 Chloride 96.9 mmol/L (98-107) L 09/30/18 07:17 Carbon Dioxide 26.9 mmol/L (22-30.0) 09/30/18 07:17 Anion Gap 16.03 09/30/18 07:17 BUN 23.9 mg/dL (9-20) H 09/30/18 07:17 Creatinine 1.04 mg/dL (0.60-1.10) 09/30/18 07:17 Estimated GFR (MDRD) 72.00 mL/min 09/30/18 07:17 BUN/Creatinine Ratio 22.98 09/30/18 07:17 Glucose 207.1 mg/dL (74-106) H 09/30/18 07:17 Hemoglobin A1c 8.08 (4.0-6.0) H 09/27/18 10:55 Lactic Acid 0.83 mmol/L (0.7-2.1) 09/28/18 20:35 Calcium 8.38 mg/dL (8.4-10.2) L 09/30/18 07:17 Total Bilirubin 0.89 mg/dL (0.2-1.3) 09/30/18 07:17 AST 59.3 U/L (17-59) H 09/30/18 07:17 ALT 72.8 U/L (0-50) H 09/30/18 07:17 Alkaline Phosphatase 54.0 U/L (56-119) L 09/30/18 07:17 Troponin I 0.013 ng/ml (0.0000-0.120) 09/29/18 02:09 Total Protein 7.41 g/dL (6.3-8.2) 09/30/18 07:17 Albumin 3.83 g/dL (3.5-5.0) 09/30/18 07:17 Globulin 3.58 09/30/18 07:17 Albumin/Globulin Ratio 1.06 09/30/18 07:17 Procalcitonin 0.32 ng/mL (<0.05) 09/28/18 20:35 H/H Trends 09/27/18 09/28/18 09/29/18 Range/Units 10:55 04:45 02:09 Hgb 11.9 L 10.1 L 10.2 L (14.0-18.0) g/dl Hct 35.3 L 30.5 L 30.5 L (42.0-52.0) % 09/30/18 Range/Units 07:17 Hgb 10.8 L (14.0-18.0) g/dl Hct 31.8 L (42.0-52.0) % Na/K Trends 09/27/18 09/28/18 09/29/18 Range/Units 10:55 04:45 02:09 Sodium 137.5 135.8 134.4 L (134.5-145) mmol/L Potassium 3.80 3.82 4.43 (3.5-5.1) mmol/L 09/30/18 Range/Units 07:17 Sodium 136.4 (134.5-145) mmol/L Potassium 3.43 L (3.5-5.1) mmol/L WBC Trends 09/27/18 09/28/18 09/29/18 Range/Units 10:55 04:45 02:09 WBC 8.11 8.14 11.62 H (4.2-10.2) K/ul 09/30/18 Range/Units 07:17 WBC 12.10 H (4.2-10.2) K/ul Cultures: Blood culture negative x 48 hours. EKG: EKG: NSR, NL axis, NL IN, NL qrs no acute infarct, no acute st/t changes, no AL, no PE criteria. Imagin. CT chest w/o contrast No acute intrathoracic process CAD. 2. Abd pelvis CT w/o contrast: NO acute process. Fatty liver, small fat containing umbilical hernia. Mild cellulitis of lower abdominal wall, no abscess. Simple appearing bilateral renal cysts. Non specific bilateral perinephric stranding. 3. CXR Negative 4. CT PE protocol Negative for PE no e/o. He did have minimal right basilar atelectasis less likely pneumonia. PENDING LABS: Tick panel Education Provided to Patient and Family: 1. Cellulitis and appropriate antibiotics. (Cdiff with clinda, probiotics) 2. Tick bites and appropriate Antibiotics (sun protection with doxy, drink with full 8 oz water) 3. DM2/insulin/DM goals 4. HTN/meds/goals 5. BMI 35/weight goals 6. When to return to ER 7. F/U with my office 10/11 Follow-ups: 1. [facility] this sunday 2. Labs CBC/CMP in 1 week (written order provided) 3. Return to work 10/02/18 (written on rx) 4. F/U with hi 10/11/18 1500 Disposition: HOME SELF-CARE Hospital Course: 62 yo CM patient of Dr. Collins presented to ED 10:30 09/27/[address] Finnegan. Known history of HTN, IDDM DM2, hyperlipidemia, Obesity bmi 35. The patient presented today with fever up to 103 x 7 days, abdominal rash and s/sx highly concerning for tick bite. Vitals Temp 102 degrees in ER, pulse 102, rr 16, bp 151/76, pulse ox 91 %. MET SIRS. Repeated at 12:05 and 102.3 degrees. Concern for tick bite/fever, covered with doxycycline in the Er as well as unasyn. 1 L bolus, tylenol given as well. CT chest ordered, CT abd pelvis ordered both w/o contrast. RMSF ordered, Procalc ordered, lyme ordered, Lactic acid ordered, ehrlichia ordered, CBC/CMP, blood culture and EKG ordered. Lactic acid negative at 1.35. Procalcitonin negative 0.36. CMP glucose mildly elevated at 119.4, mild suspected SOFIA with creatinine 1.25 and GFR 59. Remainder WNL. CBC showed wbc 8.11, hgb 11.9, mild anemia. Plt normal at 201. I was called at 13:[address] and had discussion [address] Dr[address] Finnegan 1:1 and agreed to observation admit. Evaluated by ED provider at 1200 and 1347. He was listed as afib by rhythm ekg and awake overnight monitor. Exam in ER well appearing no distress, no other pertinent + or -. Tetanus shot is not up to date. He denied any SOA, PND, orthopnea, chest pain, GARCIA. Patient did meet SIRS criteria w/ temp >100.4 and HR >90. Chest CT showed no acute intrathoracic process, CAD. Abd pelvis CT w/o contrast: NO acute process. Fatty liver, small fat containing umbilical hernia. Mild cellulitis of lower abdominal wall, no abscess. Simple appearing bilateral renal cysts. Non specific bilateral perinephric stranding. Reviewed nursing note and patient went to on sunday 09/24 and was placed on topical cream and given sulfa abx. Went to pcp office yesterday 09/26, saw PA . Wanted to watch and add another abx to this. noted that they waited but never called anything in. Went to [facility] ER 09/26 gave fluids and IV vanco. He felt worse, complained of systemic fever. 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 ER did not want to admit. I discussed that clinda and doxy are reasonable starting points for him. I would not use PCN and doxy due to interactions. Patient in room with step daughter/. Seen in room 110 at 1600. he has had sore on his abdomen for about 1 week. he notes it is increasing in size and nothing worked to decrease this. He has been on numerous abx during the week, nothing worked. he notes he has been to [facility] ER, [facility], PCP office. He has had chills and fever since sunday 09/24. He has been using tylenol. temp was 102 in the Er and dropped to 100.9. he has no pain anywhere, just tired, fatigued, NO GARCIA, no myalgia, + Rash arms/legs/ torso, sparing palms/soles/face/neck. He reports no GARCIA, feels dizzy and disoriented and fatigued. Poor sleep. Did not get home from [facility] ER until after 1 am. Patient noted that physician that saw him at [facility], [place] ER did not want abx. they gave vanco as patient noted worsening and requested something. he is tired/frustrated and wants to get it improving. Diagnosed him w/ cellulitis and d/c from ER with temp of 101. WE obtained 09/24/18 records from [facility] Genevieve colbert. Blistering abscess moderate sudden onset x 5 days. Worsening with time. Insect bite/sting suggested. Fever, GARCIA and nausea, chills and dizziness w/o Diarrhea or emesis. ROS showed chills/fever, nausea, dizziness and GARCIA. BP was 157/86 in . Bactroban ordered (Would still use this) . Bactrim ordered by . 09/26/18 presented to ED and met with Sincere Linder DO for his ad cellultis. They noted ?spider bite. Sunday09/21/18 noted worsening area of skin irritation. 09/24 went to . Was given bactrim and told to return to ER if worsening as MRSA is possible. Redness and sx worsening , saw his PCP mid level am of 09/26/18. He was given Rx for clinda but never got it. No new sx in their Er. Chills/fatigue. No chest pain, racing heart, dizziness. No SOA, no ND, no orthopnea. Fatigue ++. No genitourinary complaints. WBC 7.51, lactate 1.2. IV vanco ordered. CT abd/pelvis not done there as not clinically indicated, localized drainage no I+D. No IV abs needed , does have rx for clinda. Admission not warranted at their ER. He presented here with essentially same history but now fever for ~1 week. Rash now c/w RMSF. He has not picked up the clinda. I will put him on that and doxy. PCN ( ER) and doxy not great choice due to interactions. We started him on doxy/clinda and we allowed him to sleep overnight. Rounding in the am, he seemed to be improving. afebrile since 1800 09/27/18 up until 10am and then fever spiked again. Tylenol on board, PRN zofran on board for zofran. He did have left hand IV infiltration and IV was removed, held fluids. Ice pack applied, hand elevated. The patient did not sleep well, trazodone ordered did not seem to work. NO changes to abdominal wound overnight. Vitals reviewed and okay. Tele had been SR, SR w/ BBB, and NSR w/ BBB. GLucose stable at 134/91. Home meds resumed. Am labs showed WBC stable at 8.14, Hgb dropped ~ 1 gram to 10.1 from 11.9. He had BM this am (undocumented), reported no blood. No blood in stool historically. He had normal plt at 159. CMP Creatinine 1.27. A1C was 8.08. ALT 53.7 and AST 49.4. Uout has been 0.95ml/kg/hr over last 8 hours and good. Throughout the afternoon and evening, he resumed fever. 4 checks wer enormal and then from 09/28 10 am through 21:08 he was 102.2, 100.4 , 100.2, 100.4, 103, 100.4. He had respiratory distress around 1800 09/28/18 and we checked CXR negative, EKG, negative, procalc neg, Lactic acid negative, Troponin x 2 negative, CT PE protocol negative. Symptoms improving, Given IM decadron 8mg and IM benadryl 25mg. He felt markedly better and sx fully resolved. From that point on he had no further fever. He has now been afebrile last 24 hours. Last documented fever 09/28/18 21:08 100.4. After event on 09/28/18 patient felt markedly better. Rash improving on abdomen, body rash essentially resolved with steroid/benadryl. ?Allergic reaction, ?RMSF. Tick labs pending. Blood cultures negative x 2 days. He did great 09/29/18 and unto day of d/c on 09/30/18. Labs day of d/c included sodium 136.4, K+ 3.43 (We will replace this with oral K+). Calcium 8.38 does correct to 8.5. Mild liver enzyme elevation AST 59.3, ALT 54. Creatinine improved to 1.04. Despite the CT PE protocol that came back negative, his metofmrin was not held as per current/new guidelines. WBC increased from 8.14 on 09/28 to 11.62 on 09/29 and 12.10 on 09/30 likely demargination. Hgb 10.2 yesterday up to 10.8 today. With vitals improving, symptoms improving, rash size unchanged but erythema fading, we felt he was ready for d/c. Sugars did increase with steroids. HOme meds continued. D/C today with f/u with me 10/11/18 at 1500. CBC/CMP in 1 week. Will f/u on Tick panel. Doxy x 7 days #14. Clinda BID x 5 days #10. Maximized health potential through hospitalization. D/c Home today. Return to work on 10/02/18. Day of d/c Examination: Vital Signs - 24 hr 09/29/18 09/29/18 09/29/18 10:00 14:00 17:53 Temperature 97.8 F 98 F 97.8 F Pulse Rate 73 71 Respiratory 18 16 Rate Blood Pressure 124/74 132/84 O2 Sat by Pulse 96 96 Oximetry 09/29/18 09/29/18 09/30/18 20:00 21:08 04:48 Temperature 98.0 F 98.7 F Pulse Rate 73 80 Respiratory 18 16 18 Rate Blood Pressure 129/79 124/74 O2 Sat by Pulse 96 96 Oximetry Constitutional: Appearance-No acute distress, Consistent with stated age. sitting in bedside chair, upbeat, positive and happy to go home today. Orientation- Oriented x 3, alert Build and Nutrition-[obese male BMI 35. General- Patient is pleasant and cooperative with the interview and exam. Rash appears to be resolved. Integumentary: General-rash no longer present UE, LE, Abdomen, Abdomen: Central 5mm x 5mm central skin breakdown/scab unchanged. Fading/pink now, less erythematous. 7 cm x 3 cm erythema with. Still Blanching erythema but pink now and no longer hot to touch. Head/Neck: Head- normocephalic and atraumatic. Neck- without visible/palpable lumps or pulsations. Palpation- No bony tenderness about head/neck along frontal, occipital, temporal, parietal, mastoid, jawline, zygoma, orbit or any other location. NO temporal artery tenderness. No TMJ tenderness. Neck Supple. Thyroid-No thyromegaly, no nodules Eye: Bilaterally PERRLA, EOMI. No discharge. Upper and lower eyelids are normal. Sclera/conjunctiva normal without discharge. Cornea is normal and clear. Lens is normal. Eyeball appears normal. No ciliary flushing, no conjunctival injection. ENMT: Nares- bilateral quiet airflow, no discharge. Nasal mucosa- No bleeding noted and no ulcerations observed. [place], moist. Turbinates non boggy. Lips- normal color, moist without cracks/lesions Oral Cavity/Palate- hard/soft palate intact without lesions, oral mucosa pink and moist. Dentition assessed [] and discussed appropriate oral care. Tongue normal midline. Oropharynx- no pharyngeal erythema, Uvula midline. No post nasal drip. No exudate. No swelling of lips/tongue. Salivary glands- Non tender to palpation CHEST/LUNG: Inspection- symmetric chest wall no pectus deformity. Normal effort , no distress, no use of accessory muscles. Palpation- nontender sternum, ribline. No abnormal pulsations. Auscultation- Breath sounds normal throughout all lung rosado. Normal tracheal sounds, Normal bronchial sounds overlying sternum, Bronchovessicular sounds normal between scapulae posteriorly, Normal vessicular breath sounds heard throughout periphery. Lungs are clear today. Adventitious sounds- No wheezes, rales, rhonchi. CARDIOVASCULAR: Auscultation- Regular rate and rhythm. No murmur noted in sitting, supine positions. Extremities- no digital clubbing, cyanosis, edema, increased warmth. ABDOMEN: Inspection- normal and no visible pulsations. Normal contour. Auscultation- Bowel sounds normal, no abdominal bruits. Palpation/Percussion- soft, non-tender, no rebound tenderness, no rigidity (guarding), no jar tenderness, no masses. Liver-no hepatomegaly, Spleen no splenomegaly, Hernias - none. Rectal not examined. Lesion lower abdomen as listed. Peripheral Vascular: Lower extremity- Normal temperature with pink nailbeds and no ulcerations. DP pulses 2+ bilaterally. Pedal hair reduced. Subungual hematoma toenail, subacute. Musculoskeletal: Generalized-No generalized swelling or edema of extremities, no digital clubbing or cyanosis, neurovascularly intact all four extremities. Neurological: General- Moves all 4 extremities symmetrically. Symmetrical face and body posture. Cranial nerves- individually evaluated II-XII and intact. PERRLA, Normal EOMI, visual/special senses appear intact, Face is symmetrical and normal sensation/movement, normal tongue, normal strength/posture of neck musculature. Neuropsych: Oriented- Person, place, time. (AAOx3), Mood/affect- normal and congruent. Able to articulate well. Speech-Normal speech, normal rate, normal tone, normal use of language, volume and coherence. Thought content- normal with ability to perform basic computations and apply abstract thought/reason. Plan: 1. Cellulitis/Tick Bite: Still waiting on labs for the infections from the [place] Tick: Ehrlichia (5- 15% of ticks), [place] Tick: Lyme disease Dog Tick: Young mountain spotted fever. Antibiotics: 1. Doxycycline tabs 100 BID x 7days has been prescribed. Discussed risks/ benefits to doxy today. Drink with full 8 oz of water and make sure you use extra sunscreen due to increased risks for sun hand. 2. CLindamycin: Complete 5 more days of antibiotics. I have sent you a probiotic to pharmacy. Should you have worsening diarrhea, we need to evaluate you for Clostridiodes difficile infection. 3. Follow-up with me 10/11/18 1500. 4. [facility]U [facility] for [facility]t this coming sunday. 5. CBC and CMP in 7 days. 6. Tylenol PRN fever/pain. 7. Return to work no limitations this coming sunday10/02/18. 8 Return to ER if worsening again. 2. Anemia Hemoglobin did improve from 10.2 to 10.8. Repeat CBC in 1 week. 3. Low potassium: Repeat CMP in 1 week. I have added a new prescription temporarily for potassium. Take this until we d/c this med. - Potassium chloride 20meq 1x daily with meal - CMP in 1 week. 4. Hyperglycemia: Steroid effect. I did not stop your metformin, even with your CT with contrast as this is no longer necessary with such a good renal function. We need to monitor your sugars. THe steroid effect should wear off. Resume home meds. 5. Diet: Diabetic ADA diet encouraged 6. Activity: As tolerated 7. Return to work 10/02/18. 8. Driving: No restrictions. Discharge today >30 minutes
[2018-09-30] MEDS: DOXYCYCLINE HYCLATE PO SCH (08:57)
[2018-09-30] MEDS: ZESTRIL PO SCH (08:57)
[2018-09-30] MEDS: FLORASTOR PO SCH (08:57)
[2018-09-30] MEDS: HYDROCHLOROTHIAZIDE PO SCH (08:57)
[2018-09-30] MEDS: TENORMIN PO SCH (08:57)
[2018-09-30] MEDS: PRILOSEC PO SCH (08:57)
[2018-09-30] MEDS: LYRICA PO SCH (08:57)
[2018-09-30] MEDS: NON-FORMULARY MEDICATION (Liraglutide [Victoza 3-Pak] 0.6 MG) SQ SCH (08:59)
[2018-09-30] MEDS: LOVENOX SUBCUT SCH (08:59)
[2018-09-30] MEDS: BACTROBAN TP SCH (09:04)
[2018-09-30 10:30] VITALS: BP 0/0
== END 2018-09-30 10:15 | disposition home or self-care (01) | DRG 864 ==
LOC: ED 10:21 → INTOOBSV 13:59 → MEDSURG A 13:59 → OBSVTOIN 09-28 20:30
PROVIDERS: ADMIT Family Medicine; ATTEND Family Medicine
DX: W57.XXXA Bitten or stung by nonvenomous insect and other nonvenomous arthropods, initial encounter; E66.9 Obesity, unspecified; Z71.3 Dietary counseling and surveillance; E08.65 Diabetes mellitus due to underlying condition with hyperglycemia; R53.81 Other malaise; Z79.4 Long term (current) use of insulin; R10.9 Unspecified abdominal pain; S30.861A Insect bite (nonvenomous) of abdominal wall, initial encounter; D64.9 Anemia, unspecified; R05 Cough; I10 Essential (primary) hypertension; R65.10 Systemic inflammatory response syndrome (SIRS) of non-infectious origin without acute organ dysfunction; G47.00 Insomnia, unspecified; L03.90 Cellulitis, unspecified; R21 Rash and other nonspecific skin eruption; T80.1XXA Vascular complications following infusion, transfusion and therapeutic injection, initial encounter; Z68.35 Body mass index [BMI] 35.0-35.9, adult

== ENCOUNTER 2023-03-02 04:23 | Observation (INO) ==
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
[2023-03-02 04:41] VITALS: BMI 34.4
[2023-03-02] MEDS ORDERED: SOLU-MEDROL 125 MG IVP STA (04:50)
[2023-03-02] MEDS ORDERED: DUONEB NEB STA ×2 (04:50→06:58)
[2023-03-02 05:08] LABS: BASOPHILS # (AUTO) 0.1 K/uL (0-0.2); BASOPHILS % (AUTO) 0.9 % (0.0-3.0); EOSINOPHILS # (AUTO) 1.2 K/ul (0.0-0.7); EOSINOPHILS % (AUTO) 10.3 % (0.0-7.0); HEMATOCRIT 39.3 % (42.0-52.0); HEMOGLOBIN 12.5 g/dl (14.0-18.0); IMMATURE GRANULOCYTE % (AUTO) 0.3 % (0.0-5.0); LYMPHOCYTES # (AUTO) 2.4 K/uL (0.60-3.4); LYMPHOCYTES % (AUTO) 20.3 (10.0-50.0); MEAN CORPUSCULAR HEMOGLOBIN 27.7 pg (27.0-31.0); MEAN CORPUSCULAR HGB CONC 31.8 (31.8-35.4); MEAN CORPUSCULAR VOLUME 86.9 fl (80.0-94.0); MONOCYTES % (AUTO) 8.5 (0-10); NEUTROPHILS # (AUTO) 6.9 K/ul (2.0-6.9); NEUTROPHILS % (AUTO) 59.7 % (42.2-75.2); PLATELET COUNT 254 10^3/uL (140-440); RDW COEFFICIENT OF VARIATION 12.9 % (11.6-14.8); RED BLOOD COUNT 4.52 10^6/ul (4.70-6.10); WHITE BLOOD COUNT 11.61 K/ul (4.2-10.2)
[2023-03-02 05:13] LABS: ABG O2 HGB 94.4 % (95-100); ABG PH 7.46 (7.35-7.45); BEecf 7.5 (-2.0-3.0); COHb 1.3 (0.5-1.5); HCO3 31.3 (21-28); MetHb 1.1 (0-1.5); TCO2 32.7 (19-24); sO2 96.2 % (94-98); tHb 12.6 g/dl (11.7-17.4)
[2023-03-02 05:19] LABS: ALANINE AMINOTRANSFERASE 23.6 U/L (0-50); ALBUMIN 4.22 g/dL (3.5-5.0); ASPARTATE AMINO TRANSFERASE 30.5 U/L (17-59); BILIRUBIN,TOTAL 0.59 mg/dL (0.2-1.3); CALCIUM 8.66 mg/dL (8.4-10.2); CARBON DIOXIDE 29.6 mmol/L (22-30.0); CREATININE 1.05 mg/dL (0.60-1.10); GLUCOSE 153.1 mg/dL (74-106); POTASSIUM 3.52 mmol/L (3.5-5.1); SODIUM 139.5 mmol/L (134.5-145); TOTAL PROTEIN 8.17 g/dL (6.3-8.2)
[2023-03-02 05:32] LABS: TROPONIN I < 0.012 ng/ml (0.0000-0.120)
[2023-03-02 05:41] LABS: SARS COV-2 RNA RAPID NAAT NEGATIVE (NEGATIVE)
[2023-03-02 05:43] LABS: MOLECULAR FLU A NEGATIVE BY NAAT (NEGATIVE); MOLECULAR FLU B NEGATIVE BY NAAT (NEGATIVE); RSV MOLECULAR NEGATIVE BY NAAT (NEGATIVE)
--- NOTE | 2023-03-02 05:45 | DI ---
EXAM: AP CHEST. HISTORY: Wheezing. FINDINGS: The bones are unremarkable. The cardiac silhouette is enlarged. The pulmonary vasculature is within normal limits. The costophrenic angles are clear. There are calcified granulomas. No in filtrate or consolidation. Impression: Cardiomegaly.
[2023-03-02] MEDS ORDERED: ALBUTEROL 0.083% NEB NEB STA (06:58)
--- NOTE | 2023-03-02 06:58 | CT ---
EXAM: CT PULMONARY ANGIOGRAM. HISTORY: Dyspnea. Elevated D-dimer. PROCEDURE: After the intravenous injection of contrast a CT pulmonary angiogram was performed with c ontiguous axial CT images of the chest with multiplanar reformats, MIP images and 3-D reformats. All CT scans are performed using dose optimization techniques as appropriate to a performed exam includi ng the following: Automated exposure control, Adjustment of the mA and/or kV according to patient siz e, Use of iterative reconstruction technique. COMPARISON: CT chest of 09/28/2018. FINDINGS: There is normal enhancement of the pulmonary arteries with no evidence of pulmonary embolis m. The heart is enlarged. The thoracic aorta is within normal limits in size. There are secretions in the trachea. There is ill-defined soft tissue density occluding multiple bilateral lobe bronchi. There is a 6 mm nodule in the right lower lobe. No infiltrate or consolidation. No pneumothorax. There are degenerative changes in the spine. Impression: No evidence of pulmonary embolism. Ill-defined soft tissue density occluding multiple bilateral lower lobe bronchi, probably representin g secretions. The differential diagnosis includes endobronchial lesion. Recommend follow-up CT in 3 months to assess stability. Tracheal secretions. Cardiomegaly. Right lung nodule as described. Please see Fleischner Society pulmonary nodule guidelines below for recommended follow-up: Solid nodules: Solitary nodule size: <6 mm. Low risk patient: no follow-up needed. High risk patients: optional CT at 12 months. Solitary nodule size: 6-8 mm. Low risk patient: follow-up CT at 6-12 months, then consider further f ollow-up CT at 18-24 months. High risk patient: initial follow-up CT at 6-12 months and then at 18-2 4 months if no change. Solitary nodule size: >8 mm. Either low or high risk patients: consider follow-up CT at 3 months, an d or CT-PET, and/or biopsy. Multiple nodules: Multiple nodules size: <6 mm. Low risk patients: no routine follow-up. High risk patient: optional CT at 12 months. Multiple nodules size: 6-8 mm. Low risk patient: follow-up at 3-6 months, then consider further foll ow-up CT at 18-24 months. High risk patient: follow-up CT at 3-6 months, then at 18-24 months if no change. Multiple nodules size: > 8 mm. Low risk patient: follow-up CT at 3-6 months, then consider further f ollow-up CT at 18-24 months. High risk patient: follow-up CT at 3-6 months, then at 18-24 months if no change. Low risk patient: Minimal or absent history of smoking and/or other known risk factors. High risk patient: History of smoking or of other known risk factors (e.g. first degree relative with lung cancer, or exposure to asbestos, radon, uranium). All CT scans are performed using dose optimization techniques as appropriate to the performed exam an d include at least one of the following: Automated exposure control, adjustment of the mA and/or kV according t o size, and the use of iterative reconstruction technique.
[2023-03-02] MEDS ORDERED: TYLENOL PO PRN (09:50)
[2023-03-02] MEDS ORDERED: ALBUTEROL 0.083% NEB NEB PRN (09:52)
[2023-03-02] MEDS: LANTUS SUBCUT SCH ×2 (10:27→20:42)
[2023-03-02] MEDS: HYDROCHLOROTHIAZIDE PO SCH (10:28)
[2023-03-02] MEDS: TENORMIN PO SCH (10:29)
[2023-03-02] MEDS: PRILOSEC PO SCH ×2 (10:29→17:13)
[2023-03-02] MEDS: MOBIC PO SCH (10:29)
[2023-03-02] MEDS: GLUCOPHAGE PO SCH (10:29)
[2023-03-02] MEDS: ZESTRIL PO SCH (10:29)
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
[2023-03-02] MEDS: LEVAQUIN 500 MG/100 ML D5W 500 MG/100 ML BAG IV SCH (10:57)
[2023-03-02] MEDS ORDERED: NON-FORMULARY MEDICATION (Insulin Aspart U-100 [Novolog Flexpen U-100 Insulin] 100 unit/mL SUBCUT SCH (11:00)
[2023-03-02] MEDS: HUMALOG SUBCUT SCH ×2 (11:37→17:11)
[2023-03-02] MEDS: DUONEB NEB SCH ×2 (11:41→17:58)
[2023-03-02] MEDS: HUMULIN R SUBCUT PRN ×2 (11:42→17:13)
[2023-03-02] MEDS: SOLU-MEDROL 40 MG IVP SCH ×2 (13:32→20:41)
[2023-03-02] MEDS ORDERED: LYRICA PO SCH (17:00)
[2023-03-02] MEDS: LYRICA PO SCH (17:12)
[2023-03-02] MEDS: ZOCOR PO SCH (17:13)
[2023-03-02] MEDS: CYMBALTA PO SCH (20:42)
[2023-03-02] MEDS: BENADRYL PO PRN (21:01)
[2023-03-03] MEDS: DUONEB NEB SCH ×4 (00:30→17:06)
[2023-03-03] MEDS: SOLU-MEDROL 40 MG IVP SCH ×3 (05:14→20:52)
[2023-03-03] MEDS: PRILOSEC PO SCH ×2 (05:14→16:48)
[2023-03-03 05:26] LABS: BASOPHILS % (AUTO) 0.1 % (0.0-3.0); EOSINOPHILS % (AUTO) 0.1 % (0.0-7.0); HEMATOCRIT 37.3 % (42.0-52.0); HEMOGLOBIN 12.1 g/dl (14.0-18.0); IMMATURE GRANULOCYTE # (AUTO) 0.1 (0.0-1.0); IMMATURE GRANULOCYTE % (AUTO) 0.8 % (0.0-5.0); LYMPHOCYTES # (AUTO) 1.6 K/uL (0.60-3.4); LYMPHOCYTES % (AUTO) 11.5 (10.0-50.0); MEAN CORPUSCULAR HEMOGLOBIN 27.8 pg (27.0-31.0); MEAN CORPUSCULAR HGB CONC 32.4 (31.8-35.4); MEAN CORPUSCULAR VOLUME 85.6 fl (80.0-94.0); MONOCYTES # (AUTO) 0.7 K/uL (0.4-2.0); MONOCYTES % (AUTO) 4.9 (0-10); NEUTROPHILS # (AUTO) 11.6 K/ul (2.0-6.9); NEUTROPHILS % (AUTO) 82.6 % (42.2-75.2); PLATELET COUNT 276 10^3/uL (140-440); RED BLOOD COUNT 4.36 10^6/ul (4.70-6.10); WHITE BLOOD COUNT 14.05 K/ul (4.2-10.2)
[2023-03-03 05:47] LABS: ALANINE AMINOTRANSFERASE 22.1 U/L (0-50); ALBUMIN 4.07 g/dL (3.5-5.0); ALKALINE PHOSPHATASE 71.9 U/L (56-119); BILIRUBIN,TOTAL 0.51 mg/dL (0.2-1.3); BLOOD UREA NITROGEN 25.3 mg/dL (9-20); CALCIUM 8.85 mg/dL (8.4-10.2); CARBON DIOXIDE 26.4 mmol/L (22-30.0); CHLORIDE 98.7 mmol/L (98-107); CREATININE 0.99 mg/dL (0.60-1.10); POTASSIUM 3.94 mmol/L (3.5-5.1); SODIUM 136.4 mmol/L (134.5-145); TOTAL PROTEIN 7.92 g/dL (6.3-8.2)
[2023-03-03] MEDS: HUMULIN R SUBCUT PRN ×3 (05:58→17:21)
[2023-03-03] MEDS: MOBIC PO SCH (08:07)
[2023-03-03] MEDS: LEVAQUIN 500 MG/100 ML D5W 500 MG/100 ML BAG IV SCH (08:07)
[2023-03-03] MEDS: TENORMIN PO SCH (08:07)
[2023-03-03] MEDS: HYDROCHLOROTHIAZIDE PO SCH (08:07)
[2023-03-03] MEDS: GLUCOPHAGE PO SCH (08:07)
[2023-03-03] MEDS: ZESTRIL PO SCH (08:07)
[2023-03-03] MEDS: LANTUS SUBCUT SCH ×2 (08:10→20:53)
[2023-03-03] MEDS ORDERED: ANTIVERT PO PRN (08:36)
--- NOTE | 2023-03-03 11:10 | PCM.PROG ---
Date/Time Seen Date Seen by Provider: 03/03/23 Time Seen by Provider: 08:25 Provider [facility] Chief Complaint Chief Complaint: ACUTE HYPOXIC,RESP FAILURE,URI-VIRAL Subjective Subjective: Patient states he feels some better today. Reports having dizzy episodes and SOB from time to time at home. Attempted to wean off of oxygen yesterday and this morning without success. Dropping into upper 80s at times with oxygen only on 1L. Back up to 2L. Patient wishes to go home hopefully tomorrow. Objective Appearance: Positive No Apparent Distress and Alert and Oriented x3 Chest/Lungs: Positive Symmetrical With Equal Breath Sounds, Wheezes (RLL) and Good Air Movement all 4 Lung Tsang (diminished) Heart: Positive RRR and Pulses Normal GI/: Positive Soft, Nontender, Bowel Sounds Normal and No Distention Musculoskeletal: Positive Not Examined Neurological: Positive Sensation Intact, Motor intact, Reflexes Intact, Alert and Oriented Vital Signs Vital Signs: Vital Signs: Last 24 Hours 03/02/23 11:43 03/02/23 12:00 03/02/23 12:50 Temperature Temperature Source Pulse Rate Respiratory Rate Blood Pressure Blood Pressure Mean Blood Pressure Location Blood Pressure Position O2 Sat by Pulse Oximetry 93 L Oxygen Delivery Method Nasal Cannula Nasal Cannula Nasal Cannula Oxygen Flow Rate Telemetry Type Telemetry Monitoring Telemetry Heart Rate EKG AK Interval EKG QRS Interval Telemetry Strip Reading 03/02/23 13:00 03/02/23 13:40 03/02/23 13:53 Temperature 97.6 F Temperature Source Tympanic Pulse Rate 99 Respiratory Rate 20 Blood Pressure 119/54 L Blood Pressure Mean 75 Blood Pressure Location Right Arm Blood Pressure Position Supine O2 Sat by Pulse Oximetry 95 Oxygen Delivery Method Nasal Cannula Nasal Cannula Oxygen Flow Rate 1 Telemetry Type Remote Telemetry Telemetry Monitoring Continues Telemetry Heart Rate 97 EKG AK Interval 0.11 L EKG QRS Interval 0.07 Telemetry Strip Reading SR 03/02/23 14:00 03/02/23 15:00 03/02/23 16:00 Temperature Temperature Source Pulse Rate Respiratory Rate Blood Pressure Blood Pressure Mean Blood Pressure Location Blood Pressure Position O2 Sat by Pulse Oximetry 91 L Oxygen Delivery Method Nasal Cannula Nasal Cannula Nasal Cannula Oxygen Flow Rate 2 Telemetry Type Telemetry Monitoring Telemetry Heart Rate EKG AK Interval EKG QRS Interval Telemetry Strip Reading 03/02/23 17:00 03/02/23 17:36 03/02/23 17:43 Temperature 97.2 F L Temperature Source Tympanic Pulse Rate 90 Respiratory Rate 18 Blood Pressure 151/73 H Blood Pressure Mean 99 Blood Pressure Location Right Arm Blood Pressure Position Sitting O2 Sat by Pulse Oximetry 93 L Oxygen Delivery Method Nasal Cannula Nasal Cannula Nasal Cannula Oxygen Flow Rate 1 Telemetry Type Telemetry Monitoring Telemetry Heart Rate EKG AK Interval EKG QRS Interval Telemetry Strip Reading 03/02/23 19:00 03/02/23 19:00 03/02/23 19:38 Temperature Temperature Source Pulse Rate Respiratory Rate Blood Pressure Blood Pressure Mean Blood Pressure Location Blood Pressure Position O2 Sat by Pulse Oximetry 93 L Oxygen Delivery Method Nasal Cannula Nasal Cannula Oxygen Flow Rate 2 Telemetry Type Remote Telemetry Telemetry Monitoring Continues Telemetry Heart Rate 95 EKG AK Interval 0.17 EKG QRS Interval 0.09 Telemetry Strip Reading SR 03/02/23 20:00 03/02/23 20:00 03/02/23 20:23 Temperature 97.6 F Temperature Source Temporal Artery Scan Pulse Rate 90 Respiratory Rate 20 Blood Pressure 140/70 Blood Pressure Mean 93 Blood Pressure Location Right Arm Blood Pressure Position Supine O2 Sat by Pulse Oximetry 93 L Oxygen Delivery Method Nasal Cannula Nasal Cannula Nasal Cannula Oxygen Flow Rate 1 1 Telemetry Type Telemetry Monitoring Telemetry Heart Rate EKG AK Interval EKG QRS Interval Telemetry Strip Reading 03/02/23 21:00 03/02/23 22:00 03/02/23 23:00 Temperature Temperature Source Pulse Rate Respiratory Rate Blood Pressure Blood Pressure Mean Blood Pressure Location Blood Pressure Position O2 Sat by Pulse Oximetry Oxygen Delivery Method Nasal Cannula Nasal Cannula Nasal Cannula Oxygen Flow Rate Telemetry Type Telemetry Monitoring Telemetry Heart Rate EKG AK Interval EKG QRS Interval Telemetry Strip Reading 03/03/23 00:00 03/03/23 01:00 03/03/23 01:00 Temperature Temperature Source Pulse Rate Respiratory Rate Blood Pressure Blood Pressure Mean Blood Pressure Location Blood Pressure Position O2 Sat by Pulse Oximetry Oxygen Delivery Method Nasal Cannula Nasal Cannula Oxygen Flow Rate Telemetry Type Remote Telemetry Telemetry Monitoring Continues Telemetry Heart Rate 76 EKG AK Interval 0.19 EKG QRS Interval 0.09 Telemetry Strip Reading SR 03/03/23 02:00 03/03/23 02:00 03/03/23 03:00 Temperature Temperature Source Pulse Rate 84 Respiratory Rate 16 Blood Pressure Blood Pressure Mean Blood Pressure Location Blood Pressure Position O2 Sat by Pulse Oximetry Oxygen Delivery Method Nasal Cannula Nasal Cannula Nasal Cannula Oxygen Flow Rate 1 Telemetry Type Telemetry Monitoring Telemetry Heart Rate EKG AK Interval EKG QRS Interval Telemetry Strip Reading 03/03/23 04:00 03/03/23 05:00 03/03/23 05:24 Temperature 97.1 F L Temperature Source Oral Pulse Rate 82 Respiratory Rate Blood Pressure 139/72 Blood Pressure Mean 94 Blood Pressure Location Right Arm Blood Pressure Position Supine O2 Sat by Pulse Oximetry 97 Oxygen Delivery Method Nasal Cannula Nasal Cannula Nasal Cannula Oxygen Flow Rate 2 Telemetry Type Telemetry Monitoring Telemetry Heart Rate EKG AK Interval EKG QRS Interval Telemetry Strip Reading 03/03/23 06:00 03/03/23 06:00 03/03/23 07:00 Temperature Temperature Source Pulse Rate Respiratory Rate Blood Pressure Blood Pressure Mean Blood Pressure Location Blood Pressure Position O2 Sat by Pulse Oximetry 96 Oxygen Delivery Method Nasal Cannula Nasal Cannula Nasal Cannula Oxygen Flow Rate 2 Telemetry Type Telemetry Monitoring Telemetry Heart Rate EKG AK Interval EKG QRS Interval Telemetry Strip Reading 03/03/23 07:00 03/03/23 07:54 03/03/23 09:00 Temperature Temperature Source Pulse Rate Respiratory Rate Blood Pressure Blood Pressure Mean Blood Pressure Location Blood Pressure Position O2 Sat by Pulse Oximetry Oxygen Delivery Method Nasal Cannula Nasal Cannula Oxygen Flow Rate Telemetry Type Remote Telemetry Telemetry Monitoring Continues Telemetry Heart Rate 82 EKG AK Interval 0.14 EKG QRS Interval 0.10 Telemetry Strip Reading NSR 03/03/23 10:00 03/03/23 10:00 03/03/23 10:00 Temperature 98 F Temperature Source Temporal Artery Scan Pulse Rate 77 Respiratory Rate 18 Blood Pressure 144/80 H Blood Pressure Mean 101 Blood Pressure Location Right Arm Blood Pressure Position Sitting O2 Sat by Pulse Oximetry 92 L Oxygen Delivery Method Nasal Cannula Nasal Cannula Nasal Cannula Oxygen Flow Rate 1 2 Telemetry Type Telemetry Monitoring Telemetry Heart Rate EKG AK Interval EKG QRS Interval Telemetry Strip Reading Lab Results Lab Results: Lab Results: Last 24 Hours 03/03/23 05:05 WBC 14.05 H RBC 4.36 L Hgb 12.1 L Hct 37.3 L MCV 85.6 MCH 27.8 MCHC 32.4 RDW Coeff of Samantha 13.0 Plt Count 276 Immature Gran % (Auto) 0.8 Neut % (Auto) 82.6 H Lymph % (Auto) 11.5 Stanley % (Auto) 4.9 Eos % (Auto) 0.1 Baso % (Auto) 0.1 Neut # (Auto) 11.6 H Lymph # (Auto) 1.6 Stanley # (Auto) 0.7 Eos # (Auto) 0.0 Baso # (Auto) 0.0 Immature Gran # (Auto) 0.1 Sodium 136.4 Potassium 3.94 Chloride 98.7 Carbon Dioxide 26.4 Anion Gap 15.24 BUN 25.3 H Creatinine 0.99 Estimated GFR (MDRD) 75.00 BUN/Creatinine Ratio 25.55 Glucose 190.0 H Calcium 8.85 Total Bilirubin 0.51 AST 25.0 ALT 22.1 Alkaline Phosphatase 71.9 Total Protein 7.92 Albumin 4.07 Globulin 3.85 Albumin/Globulin Ratio 1.05 Additional Comments Additional Comments: I have independently reviewed and interpreted the labs/EKGs/imaging ordered during this hospital stay. I have reviewed outside records that are available in our EMR that pertain to medical stay including imaging/notes/labs from previous visits. Active Medications Active Medications: Medications Generic Name Dose Route Start Last Admin Trade Name Freq PRN Reason Stop Dose Admin Acetaminophen 650 mg 03/02/23 09:50 Acetaminophen 325 Mg Tablet PO Q4H PRN Mild Pain Albuterol Sulfate 2.5 mg 03/02/23 09:52 Albuterol Sulfate 0.083% Vial.Neb NEB RTQ4H PRN Wheezing Albuterol/Ipratropium 3 ml 03/02/23 12:00 03/03/23 05:15 Ipratropium/Albuterol Vial.Neb NEB 3 ml RTQ6H RAMOS Administration Atenolol 100 mg 03/02/23 09:00 03/03/23 08:07 Atenolol 50 Mg Tablet PO 100 mg DAILY RAMOS Administration Diphenhydramine HCl 50 mg 03/02/23 21:00 03/02/23 21:01 Diphenhydramine Hcl 25 Mg Capsule PO 50 mg 2100 PRN Administration Anxiety Duloxetine HCl 60 mg 03/02/23 21:00 03/02/23 20:42 Duloxetine Hcl 30 Mg Capsule. PO 60 mg BEDTIME RAMOS Administration Hydrochlorothiazide 25 mg 03/02/23 09:00 03/03/23 08:07 Hydrochlorothiazide 25 Mg Tablet PO 25 mg DAILY RAMOS Administration Levofloxacin/Dextrose 500 mg in 100 mls @ 100 mls/hr 03/02/23 11:00 03/03/23 08:07 Levaquin 500 Mg/100 Ml D5w IV 03/05/23 10:59 100 mls/hr DAILY RAMOS Administration Insulin Glargine 40 unit 03/02/23 09:00 03/03/23 08:10 Insulin Glargine,Hum.Rec.Anlog 100 Units/Ml SUBCUT 40 unit BID RAMOS Administration Insulin Human Regular 0 unit 03/02/23 10:31 03/03/23 05:58 Insulin Regular, Human 100 Unit/Ml (10ml) Vial SUBCUT 25 unit PRN PRN Administration Hyperglycemia Protocol Lisinopril 40 mg 03/02/23 09:00 03/03/23 08:07 Lisinopril 40 Mg Tablet PO 40 mg DAILY RAMOS Administration Meclizine HCl 25 mg 03/03/23 08:36 03/03/23 09:42 Meclizine Hcl 25 Mg Tablet PO 25 mg TID PRN Administration Vertigo Meloxicam 15 mg 03/02/23 09:00 03/03/23 08:07 Meloxicam 7.5 Mg Tablet PO 15 mg DAILYWM2 RAMOS Administration Metformin HCl 500 mg 03/02/23 09:00 03/03/23 08:07 Metformin Hcl 500 Mg Tablet PO 500 mg DAILYWM2 RAMOS Administration Methylprednisolone Sodium Succinate 40 mg 03/02/23 13:00 03/03/23 05:14 Methylprednisolone Sod Succ/Pf 40 Mg/Ml Vial IVP 40 mg Q8HR RAMOS Administration Non-Formulary Medication 0.6 mg 03/07/23 09:00 Liraglutide [Victoza 3-Ben] SUBCUT WEEKLY RAMOS Omeprazole 20 mg 03/02/23 09:00 03/03/23 05:14 Omeprazole 20 Mg Capsule.Dr PO 20 mg BIDAC2 RAMOS Administration Pregabalin 200 mg 03/02/23 17:00 03/02/23 17:12 Pregabalin 50 Mg Capsule PO 200 mg 1700 RAMOS Administration Simvastatin 80 mg 03/02/23 17:00 03/02/23 17:13 Simvastatin 40 Mg Tablet PO 80 mg 1700 RAMOS Administration Sodium Chloride 1 syr 03/02/23 21:00 03/03/23 05:15 0.9% Sodium Chloride 10 Ml Disp.Syrin IVF 1 syr Q8HR RAMOS Administration Plan Plan: 1. Acute Hypoxic Respiratory Failure in the setting of COPD exacerbation - Unchanged, continue to wean oxygen as tolerated - will complete 3 step prior to discharge, steroids, nebs, levaquin due to recent abx 2. COPD Exacerbation - see above 3. Hypertension - chronic, stable, continue home medications 4. Hyperlipidemia - chronic, continue home medications 5. DM, type 2 - ADA diet, accuchecks qid with ssi (home sliding scale ordered), continue home medications DVT Prophylaxis: Up ad edmund Review Statement Review Statement: I have personally discussed and reviewed the patient's visit/currently labs/imaging/decision making with Dr. Long, my supervising attending. Greater that 50 minutes spent with patient, 50% of the time spent with this patient was devoted to counseling and coordination of care.
[2023-03-03] MEDS: LYRICA PO SCH (16:47)
[2023-03-03] MEDS: ZOCOR PO SCH (16:48)
[2023-03-03] MEDS: BENADRYL PO PRN (20:52)
[2023-03-03] MEDS: CYMBALTA PO SCH (20:53)
[2023-03-04] MEDS: DUONEB NEB SCH ×2 (00:11→05:28)
[2023-03-04 05:02] VITALS: BP 144/78; PULSE 75; TEMP 97.3
[2023-03-04 05:15] LABS: BASOPHILS % (AUTO) 0.1 % (0.0-3.0); HEMATOCRIT 36.4 % (42.0-52.0); HEMOGLOBIN 11.7 g/dl (14.0-18.0); IMMATURE GRANULOCYTE # (AUTO) 0.2 (0.0-1.0); IMMATURE GRANULOCYTE % (AUTO) 0.9 % (0.0-5.0); LYMPHOCYTES # (AUTO) 1.7 K/uL (0.60-3.4); LYMPHOCYTES % (AUTO) 9.6 (10.0-50.0); MEAN CORPUSCULAR HEMOGLOBIN 27.7 pg (27.0-31.0); MEAN CORPUSCULAR HGB CONC 32.1 (31.8-35.4); MEAN CORPUSCULAR VOLUME 86.3 fl (80.0-94.0); MONOCYTES # (AUTO) 0.8 K/uL (0.4-2.0); MONOCYTES % (AUTO) 4.5 (0-10); NEUTROPHILS # (AUTO) 14.9 K/ul (2.0-6.9); NEUTROPHILS % (AUTO) 84.9 % (42.2-75.2); PLATELET COUNT 275 10^3/uL (140-440); RDW COEFFICIENT OF VARIATION 13.2 % (11.6-14.8); RED BLOOD COUNT 4.22 10^6/ul (4.70-6.10); WHITE BLOOD COUNT 17.55 K/ul (4.2-10.2)
[2023-03-04] MEDS: PRILOSEC PO SCH (05:18)
[2023-03-04] MEDS: SOLU-MEDROL 40 MG IVP SCH (05:19)
[2023-03-04 05:29] LABS: ALANINE AMINOTRANSFERASE 22.7 U/L (0-50); ALBUMIN 3.98 g/dL (3.5-5.0); ALKALINE PHOSPHATASE 64.7 U/L (56-119); ASPARTATE AMINO TRANSFERASE 28.6 U/L (17-59); BILIRUBIN,TOTAL 0.34 mg/dL (0.2-1.3); BLOOD UREA NITROGEN 34.6 mg/dL (9-20); CALCIUM 8.97 mg/dL (8.4-10.2); CARBON DIOXIDE 29.1 mmol/L (22-30.0); CHLORIDE 98.9 mmol/L (98-107); CREATININE 1.18 mg/dL (0.60-1.10); GLUCOSE 193.1 mg/dL (74-106); POTASSIUM 4.48 mmol/L (3.5-5.1); SODIUM 136.7 mmol/L (134.5-145); TOTAL PROTEIN 7.47 g/dL (6.3-8.2)
[2023-03-04] MEDS: HUMULIN R SUBCUT PRN (06:09)
[2023-03-04] MEDS: MOBIC PO SCH (07:28)
[2023-03-04] MEDS: GLUCOPHAGE PO SCH (07:28)
[2023-03-04 08:12] VITALS: RESP 18
[2023-03-04] MEDS: ZESTRIL PO SCH (08:46)
[2023-03-04] MEDS: HYDROCHLOROTHIAZIDE PO SCH (08:46)
[2023-03-04] MEDS: TENORMIN PO SCH (08:46)
[2023-03-04] MEDS: LEVAQUIN 500 MG/100 ML D5W 500 MG/100 ML BAG IV SCH (08:46)
[2023-03-04] MEDS: LANTUS SUBCUT SCH (08:47)
--- NOTE | 2023-03-04 10:11 | DCSUM ---
Admission Date Admission Date: 03/02/23 Discharge Date Discharge Date: 03/04/23 Admission Diagnosis Admission Diagnosis: 1. Acute Hypoxic Respiratory Failure in the setting of COPD exacerbation 2. COPD Exacerbation 3. Hypertension 4. Hyperlipidemia 5. DM, type 2 Discharge Diagnosis Discharge Diagnosis: 1. Acute Hypoxic Respiratory Failure in the setting of COPD exacerbation - Resolved 2. COPD Exacerbation - Improving 3. Hypertension - Chronic, Stable 4. Hyperlipidemia - Chronic, Stable 5. DM, type 2 - Chronic, Stable Hospital Provider Hospital Provider: AARON FAITH, [facility] [place] [facility] Physician Primary Care Physician: CHRIST KING MD Summary of History and Physical Summary of History and Physical: 67 yo male presented to the ER with complaints of shortness of breath and fever. States symptoms started on Sunday. Has grandkids that tested positive for RSV on Sunday. States that he was treated for these symptoms on 02/13 with cefuroxime, cough medicine, and eye drops. Unsure what he was treated for. Was covid tested and was negative at that time. In ER, he was given steroids and neb treatments and is feeling better following. O2 sat was staying around upper 80s to low 90s. He is currently on 2L of oxygen. Has pmh of COPD with no home oxygen use. Hospital Course Subjective: During stay, patient has received levaquin for treatment of possible underlying pneumonia with copd exacerbation as well as steroids and nebulizer treatments. Patient has required 2L of oxygen during majority of stay. Stays 90-93% on RA. 3 step oximetry for home oxygen qualification was passed and did not meet the need. All other home medications were continued and no changes made. Discharged home with levaquin, steroids, nebulizer and duonebs, as well as inhaler. Discussed importance of discussing PFT need with PCP this week during follow-up appointment. Appearance: Pleasant, No Apparent Distress and Alert HEENT: MMM and Supple CVS: No Murmur and No Rubs Abdomen: Soft and Non-Tender Respiratory: No Dyspnea Extremities: No Edema Vital Signs: Most Recent Vital Signs Temperature 97.3 F L 03/04/23 05:01 Temperature Source Oral 03/04/23 05:01 Temperature Source Oral 03/02/23 04:28 Pulse Rate 75 03/04/23 05:01 Respiratory Rate 18 03/04/23 08:00 Blood Pressure 144/78 H 03/04/23 05:01 Blood Pressure Mean 100 03/04/23 05:01 Blood Pressure Left Arm 159/74 03/02/23 08:38 Blood Pressure Location Right Arm 03/04/23 05:01 Blood Pressure Position Supine 03/04/23 05:01 O2 Sat by Pulse Oximetry 96 03/04/23 05:27 Oxygen Delivery Method Nasal Cannula 03/04/23 09:59 Oxygen Flow Rate 2 03/04/23 08:00 Height 6 ft 03/02/23 08:38 Weight 253 lb 12.8 oz 03/02/23 08:38 Telemetry Type Remote Telemetry 03/04/23 07:00 Telemetry Monitoring Continues 03/04/23 07:00 Telemetry Heart Rate 78 03/04/23 07:00 Telemetry SPO2 94 03/04/23 07:00 EKG ME Interval 0.16 03/04/23 07:00 EKG QRS Interval 0.08 03/04/23 07:00 Telemetry Strip Reading SR 03/04/23 07:00 Lab Results Last 24 Hours: 03/04/23 05:05 WBC 17.55 H RBC 4.22 L Hgb 11.7 L Hct 36.4 L MCV 86.3 MCH 27.7 MCHC 32.1 RDW Coeff of Samantha 13.2 Plt Count 275 Immature Gran % (Auto) 0.9 Neut % (Auto) 84.9 H Lymph % (Auto) 9.6 L [place] % (Auto) 4.5 Eos % (Auto) 0.0 Baso % (Auto) 0.1 Neut # (Auto) 14.9 H Lymph # (Auto) 1.7 [place] # (Auto) 0.8 Eos # (Auto) 0.0 Baso # (Auto) 0.0 Immature Gran # (Auto) 0.2 Sodium 136.7 Potassium 4.48 Chloride 98.9 Carbon Dioxide 29.1 Anion Gap 13.18 BUN 34.6 H Creatinine 1.18 H Estimated GFR (MDRD) 62.00 BUN/Creatinine Ratio 29.32 Glucose 193.1 H Calcium 8.97 Total Bilirubin 0.34 AST 28.6 ALT 22.7 Alkaline Phosphatase 64.7 Total Protein 7.47 Albumin 3.98 Globulin 3.49 Albumin/Globulin Ratio 1.14 Discharge Instructions Discharge Planning: Discharge Planning > 40 minutes If patient is discharged with left ventricular systolic dysfunction: NA Discharged with a beta sariah? [] If no, why not? [] Discharged with an sonia/arb? [] If no, why not? [] DX: COPD EXACERBATION DIABETIC DIET ACTIVITY TOLERATED FOLLOW-UP WITH PCP THIS WEEK AND DISCUSS PFT NEED RX: LEVAQUIN, MEDROL BEN, DUONEB, ALBUTEROL INHALER Discharge Medications: Medications at Discharge (Home Meds & RX) atenolol 100 mg tablet 100 mg PO DAILY #90 tabs 02/04/19 hydrochlorothiazide 25 mg tablet 25 mg PO DAILY #90 tabs 02/04/19 insulin aspart U-100 100 unit/mL (3 mL) subcutaneous pen (Novolog FlexPen U-100 Insulin aspart) 20 unit (0.2 mL) subcut TIDAC 90 days #15 mL 02/04/19 lisinopril 40 mg tablet 40 mg PO DAILY #90 tabs 02/04/19 duloxetine 60 mg capsule,delayed release (Cymbalta) 60 mg PO .HS 03/02/23 insulin glargine 100 unit/mL (3 mL) subcutaneous pen (Lantus Solostar U-100 Insulin) 40 unit subcut BID 03/02/23 liraglutide 0.6 mg/0.1 mL (18 mg/3 mL) subcutaneous pen injector (Victoza 3-Ben) 0.6 mg subcut WEEKLY 03/02/23 meloxicam 15 mg tablet 15 mg PO DAILY 03/02/23 metformin 1,000 mg tablet 500 mg PO DAILY 03/02/23 omeprazole 20 mg capsule,delayed release 20 mg PO BID 03/02/23 pregabalin 150 mg capsule (Lyrica) 200 mg PO 1700 03/02/23 simvastatin 40 mg tablet 80 mg PO 1700 03/02/23 C.NEBULIZER (NEBULIZER) #1 ea 03/04/23 albuterol sulfate 90 mcg/actuation breath activated powder inhaler 2 inh inhalation Q4-6H PRN shortness of breath or wheezing #1 ea 03/04/23 ipratropium 0.5 mg-albuterol 3 mg (2.5 mg base)/3 mL nebulization soln 3 ml NEB RTQ6H #120 mL 03/04/23 levofloxacin 500 mg tablet 500 mg PO EVERY OTHER DAY #7 tabs 03/04/23 methylprednisolone 4 mg tablets in a dose pack (Medrol (Ben)) See Rx Instructions PO .COMPLEX #21 ea 03/04/23 Discharge Plan Discharge Discharge Orders: Discharge Patient (ONCE); Ordered 03/04/23 Ordered By: ALINE MCCULLOUGH Activity Restrictions/Additional Instructions: Diabetic diet Activity as tolerated Follow-up with PCP next week. Discuss need for pulmonary function test. Medications: Levaquin 500 mg every other day until finished Medrol dose pack (steroids) until finished. Duoneb (nebulizer treatments) every 6 hours until feeling better Albuterol inhaler 2 puffs every 4-6 hours as needed for shortness of breath or wheezing Instructions: COPD (Chronic Obstructive Pulmonary Disease) (GEN) Patient Disposition: HOME WITH FAMILY CARE Prescriptions: New ipratropium-albuterol 0.5 mg-3 mg(2.5 mg base)/3 mL Solution For Nebulization 3 ml NEB RTQ6H Qty: 120 0RF albuterol sulfate 90 mcg/actuation aerosol powdr breath activated 2 inh inhalation Q4-6H PRN (Reason: shortness of breath or wheezing) Qty: 1 0RF levofloxacin 500 mg tablet 500 mg PO EVERY OTHER DAY Qty: 7 0RF (DME) NEBULIZER Misc See Rx Instructions .ROUTE Qty: 1 0RF Rx Instructions: As directed methylprednisolone [Medrol (Ben)] 4 mg tablets,dose pack See Rx Instructions .ROUTE .COMPLEX Qty: 21 0RF Rx Instructions: orally per package directions Continued atenolol 100 mg tablet 100 mg PO DAILY Qty: 90 1RF hydrochlorothiazide 25 mg tablet 25 mg PO DAILY Qty: 90 1RF insulin aspart U-100 [Novolog FlexPen U-100 Insulin] 100 unit/mL (3 mL) insulin pen 20 unit subcut TIDAC 90 Days Qty: 15 1RF lisinopril 40 mg tablet 40 mg PO DAILY Qty: 90 1RF duloxetine [Cymbalta] 60 mg capsule,delayed release(DR/EC) 60 mg PO .HS meloxicam 15 mg tablet 15 mg PO DAILY simvastatin 40 mg tablet 80 mg PO 1700 metformin 1,000 mg tablet 500 mg PO DAILY omeprazole 20 mg capsule,delayed release(DR/EC) 20 mg PO BID pregabalin [Lyrica] 150 mg capsule 200 mg PO 1700 insulin glargine [Lantus Solostar U-100 Insulin] 100 unit/mL (3 mL) insulin pen 40 unit SUBCUT BID Victoza 3-Ben 0.6 mg/0.1 mL (18 mg/3 mL) pen injector 0.6 mg subcut WEEKLY Patient Comments: Takes on . Did you review [place] [employer] for ALL controlled substances?: No Discussed opioids are addictive and Narcan is available by prescription or from pharmacy.: No Condition: Good
== END 2023-03-04 10:17 | disposition home or self-care (01) ==
LOC: ED 04:23 → MEDSURG B 04:23
PROVIDERS: ADMIT Hospitalist; ATTEND Nurse Practitioner Family